=== PATIENT | female | born 1955 | race Caucasian/White ===

== ENCOUNTER 2018-02-20 18:45 | Emergency (ER) | payer MEDICARE, MEDICAID ==
[~2018-02-20] VITALS: Ht 160 cm; Wt 122.5 kg
[~2018-02-20 18:45] MED LIST: AC500T PO; ALPR0.25 PO; ALPR0.5T PO; AMLO5TAB2 PO; ASPI-731 PO; ASPI325T57 PO; CHOL400C8 PO; CYAN100T PO; DIAZ5TAB3 PO; FERR-47 PO; HYDR118S10 PO; ISOS60TA3 PO; LAMO200T2 PO; MULT-974 PO; MULT1CAP27 PO; OXYC-12 PO; POTA99TA15 PO; SULF1TAB35 PO; TRAM50TA2 PO
--- NOTE | 2018-02-20 19:31 | ED Lower Extremity ---
General Chief Complaint: Lower Extremity Stated Complaint: R ANKLE PAIN,TRIPPED OVER WALKER Nursing Triage Note: 02/19 TRIPPED OVER GRANDSONS WALKER, FELL AND HIT HEAD WITH NO LOC, RIGHT HIP BRUISING AND SLIGHT PAIN. 02/20 FELL OVER WALKER AGAIN. RIGHT KNEE "INDENTION" WIHT RIGHT ANKLE/ FOOT PAIN AND SWELLING. Nursing Sepsis Screen: No Definite Risk Source: patient Exam Limitations: no limitations History of Present Illness Date Seen by Provider: Feb 20, 2018 Time Seen by Provider: 19:28 Initial Comments To ER per private vehicle with reports of a fall. She states that her 8-month- old grandson is in a walker and is becoming mobile. She tripped over his walker last night and struck the front of her head. No loss of consciousness. She then tripped again today, felt a popping sensation in the right ankle and has been unable to bear weight since then. She has an "indentation" on her right knee after the fall and she has some right hip pain after the fall today. She again struck the back of her head today during the fall but again no loss of consciousness headache nausea or vomiting. She is on aspirin daily, no other anticoagulant or antiplatelet drugs. Onset: just prior to arrival Severity: moderate Pain/Injury Location: right hip, right knee, right ankle Method of Injury: fell Modifying Factors: Worse With Movement Allergies and Home Medications Allergies Coded Allergies: No Known Drug Allergies (Unverified , 02/20/18) Home Medications Acetaminophen 500 Mg Tablet, 1,000 MG PO Q6H PRN for PAIN, (Reported) TAKES 2 (500MG) TABLETS NEEDED FOR PAIN Alprazolam 0.25 Mg Tablet, 0.25 MG PO BID PRN for ANXIETY, (Reported) NEEDED FOR ANXIETY Amlodipine Besylate 5 Mg Tablet, 5 MG PO DAILY, (Reported) Aspirin 325 Mg Tablet.dr, 325 MG PO BID Prescribed by: TYLOR CLIFFORD on 08/26/13 0148 Ferrous Sulfate 325 ( Tablet, 325 MG PO DAILY, (Reported) Isosorbide Mononitrate 60 Mg Tab.er.24h, 60 MG PO DAILY, (Reported) Lamotrigine 200 Mg Tablet, 200 MG PO TID, (Reported) Multivitamin 1 Each Tablet, 1 TAB PO DAILY, (Reported) Oxycodone Hcl/Acetaminophen 1 Each Tablet, 1-2 TAB PO Q4H PRN for PAIN Prescribed by: TYLOR CLIFFORD on 08/26/13 0146 Potassium Gluconate 99 Mg Tablet, 99 MG PO DAILY, (Reported) Sulfamethoxazole/Trimethoprim 1 Each Tablet, 1 EACH PO BID Prescribed by: JESSICA VILLAGOMEZ on 09/02/15 1414 Patient Home Medication List Home Medication List Reviewed: Yes Review of Systems Constitutional: see HPI EENTM: see HPI Respiratory: no symptoms reported Cardiovascular: no symptoms reported Genitourinary: no symptoms reported Musculoskeletal: see HPI Skin: no symptoms reported Psychiatric/Neurological: No Symptoms Reported Past Azmczti-Kycxcz-Pkocoj Hx Patient Social History Alcohol Use: Denies Use Recreational Drug Use: No Smoking Status: Never a Smoker Recent Foreign Travel: No Contact w/Someone Who Travel: No Recent Infectious Disease Expo: No Recent Hopitalizations: Yes (LAST YEAR FOR DISC FUSION) Physical Abuse: No Sexual Abuse: No Immunizations Up To Date Tetanus Booster (TDap): More than 5yrs Past Medical History Surgeries: Yes (GASTRIC BYPASS, BLADDER TIE UP, internal groshong insertion) Orthopedic Respiratory: No Cardiac: Yes Hypertension Neurological: Yes (LAST SEIZURE A YEAR AND A HALF AGO) Reproductive Disorders: No Genitourinary: No Gastrointestinal: No Musculoskeletal: Yes Arthritis, Back Injury Endocrine: No HEENT: No Cancer: No Psychosocial: No Integumentary: No Blood Disorders: No Family Medical History Family history: Arthritis 03 MOTHER Family history: Cardiovascular disease 03 FATHER 09 BROTHER Family history: Diabetes mellitus 03 FATHER Family history: Hypertension 03 MOTHER Family history: Thyroid disorder 03 MOTHER 09 SISTER Myocardial infarction 03 FATHER Stroke 03 FATHER No Family History of: Abdominal aortic aneurysm Alcoholism Cancer Family history: Alzheimer's disease Family history: Asthma Family history: Breast disease Family history: Gastrointestinal disease Hereditary disease History of - anemia History of - respiratory disease Seizure disorder No Pertinent Family Hx Physical Exam Vital Signs Vital Signs - First Documented 02/20/18 19:04 Temp 96.9 Pulse 76 Resp 16 B/P (MAP) 170/93 (118) Pulse Ox 100 Capillary Refill : Less Than 3 Seconds Height, Weight, BMI Height: 5'3.00" Weight: 270lbs. 0.0oz. 122.088861vk; 47.23 BMI Method:Stated General Appearance: WD/WN, no apparent distress HEENT: PERRL/EOMI, normal ENT inspection, TMs normal Neck: non-tender, full range of motion; No tender lateral, No tender midline Cardiovascular: regular rate, rhythm, no murmur Respiratory: normal breath sounds, no respiratory distress, no accessory muscle use Gastrointestinal: normal bowel sounds, non tender Hips: left hip non-tender; bilateral hip normal inspection, bilateral hip normal range of motion; right hip pain Legs: right leg pain, right leg soft tissue tenderness Knees: right knee pain Ankles: right ankle pain, right ankle soft tissue tenderness, right ankle swelling, right ankle other (circumferential swelling ecchymosis of the right ankle primarily distal tibia/fibula) Feet: right foot other (she maintains brisk capillary refill of all of the toes , palpable dorsalis pedis pulse bilaterally) Neurologic/Psychiatric: alert, normal mood/affect, oriented x 3 Skin: normal color, warm/dry Progress/Results/Core Measures Results/Orders My Orders Orders - MARIE KAISER APRN Ct Head Wo (02/20/18 19:22) Pelvis With Right Hip 2-3views (02/20/18 19:22) Tibia/Fibula, Right, 2 Views (02/20/18 19:22) Ankle, Right, 3 Views (02/20/18 19:22) Oxycodone/Apap 5/325mg Tablet (Percocet (02/20/18 20:30) Rx-Oxycodone/Apap 5-325 Mg (Rx-Percocet (02/20/18 20:30) Medications Given in ED Current Medications Medications Dose Ordered Sig/Carol Route Start Time Stop Time Status Last Admin Dose Admin Oxycodone/ Acetaminophen 1 tab ONCE ONCE PO 02/20/18 20:30 02/20/18 20:31 DC 02/20/18 20:31 1 TAB Vital Signs/I&O 02/20/18 19:04 Temp 96.9 Pulse 76 Resp 16 B/P (MAP) 170/93 (118) Pulse Ox 100 Blood Pressure Mean: 118 Diagnostic Imaging Diagonstic Imaging: CT Comments NAME: CONG NEAL MED REC#: [id number] PT STATUS: REG ER : 1955 PHYSICIAN: MARIE KAISER APRN ADMIT DATE: 02/20/18/ER Draft Date of Exam:02/20/18 ANKLE, RIGHT, 3 VIEWS EXAM: Ankle, right, 3 views. INDICATION: Fall. Right ankle pain. COMPARISON: Right tibia and fibula radiographs also performed today. FINDINGS: Mildly displaced obliquely oriented fracture through the distal right fibular metaphysis at the level of the tibial plafond. There is also a comminuted mildly displaced fracture of the right medial malleolus. The talar dome appears intact. Soft tissue swelling about the right ankle. IMPRESSION: Bimalleolar right ankle fracture. Dictated on workstation # [id number] Dict: 02/20/182030 Trans: 02/20/182032 [facility] [id number] Interpreted by: ALYX VILLEDA MD Electronically signed by: NAME: CONG NEAL [place] REC#: [id number] PT STATUS: REG ER : 1955 PHYSICIAN: MARIE KAISER APRN ADMIT DATE: 02/20/18/ER Draft Date of Exam:02/20/18 TIBIA/FIBULA, RIGHT, 2 VIEWS EXAM: Tibia/fibula, right, 2 views. INDICATION: Fall. Right knee pain. Right ankle pain. COMPARISON: Right ankle radiographs also performed today. FINDINGS: Postoperative findings of a right total knee arthroplasty. Components appear intact and well seated. No periprosthetic fractures. There is an obliquely oriented mildly displaced fracture of the distal right fibular metaphysis at the level of the tibial plafond. There is also a mildly displaced fracture through the base of the right medial malleolus. Soft tissue swelling about the right ankle. IMPRESSION: 1. Bimalleolar right ankle fracture. 2. Right TKA. Dictated on workstation # [id number] Dict: 02/20/182028 Trans: 02/20/182031 [facility] [id number] Interpreted by: ALYX VILLEDA MD Electronically signed by: NAME: CONG NEAL [place] REC#: [id number] PT STATUS: REG ER : 1955 PHYSICIAN: MARIE KAISER APRN ADMIT DATE: 02/20/18/ER Draft Date of Exam:02/20/18 PELVIS WITH RIGHT HIP 2-3VIEWS EXAM: Pelvis with right hip 2-3 views. INDICATION: Fall. COMPARISON: None. FINDINGS: Mild degenerative changes in both hips. No fracture or malalignment. Partially visualized postoperative changes in the lumbar spine. Soft tissue shadows are unremarkable. IMPRESSION: No acute radiographic findings. Dictated on workstation # [id number] Dict: 02/20/182027 Trans: 02/20/182030 [facility] [id number] Interpreted by: ALYX VILLEDA MD Electronically signed by: NAME: CONG NEAL [facility] REC#: [id number] PT STATUS: REG ER : 1955 PHYSICIAN: MARIE KAISER ACCOUNT EXECUTIVE ADMIT DATE: 02/20/18/ER Draft Date of Exam:02/20/18 CT HEAD WO PROCEDURE: CT head without contrast. TECHNIQUE: Multiple contiguous axial images were obtained through the brain without the use of intravenous contrast. INDICATION: Fall. Head injury. COMPARISON: None. FINDINGS: Mild generalized cerebral and cerebellar parenchymal volume loss is age appropriate. No CT evidence for territorial infarction. Mild leukoaraiosis. No intracranial hemorrhage, mass effect, hydrocephalus or extra-axial fluid collections. No acute osseous findings. The visualized paranasal sinuses and mastoids are clear. IMPRESSION: No acute intracranial CT findings. Dictated on workstation # [id number] Dict: 02/20/182034 Trans: 02/20/182037 [facility] [id number] Interpreted by: ALYX VILLEDA MD Electronically signed by: Departure Communication (Admissions) Communicated with Dr. Valencia who is on-call for orthopedics regarding the bimalleolar ankle fracture. We will splint, he'll see in the clinic tomorrow morning at 11 AM. She is neurovascularly intact at this time. Posterior short leg and stirrup style splint with orthoglass applied, given crutches. Impression Primary Impression: Bimalleolar fracture of right ankle Disposition: HOME, SELF-CARE Condition: Stable Departure-Patient Inst. Decision time for Depature: 20:21 Referrals: EZE VALENCIA MD, LISA A MD (PCP/Family) Primary Care Physician Patient Instructions: Ankle Fracture (DC) Add. Discharge Instructions: 1. Elevate the ankle as much as possible tonight. But this on 3 or 4 pillows while you're at home laying flat and this will help with the swelling and subsequent pain. See Dr. Valencia tomorrow at 11 AM in his office in [place]. Leave the splint on at all times until he directs you otherwise. Do not put any weight on the right leg. All discharge instructions reviewed with patient and/ or family. Voiced understanding. Copy Copies To 1: EZE VALENCIA MD, PETER J APRN Feb 20, 2018 19:31
[2018-02-20] MEDS ORDERED: RX-OXYCODONE/APAP 5-325 MG #4 TAB PK PO PRN (20:30)
[2018-02-20] MEDS ORDERED: oxyCODONE/APAP 5/325MG (PERCOCET 5) TABLET PO ONE (20:30)
--- NOTE | 2018-02-20 20:32 | Diagnostic Imaging Report ---
EXAM: Pelvis with right hip 2-3 views. INDICATION: Fall. COMPARISON: None. FINDINGS: Mild degenerative changes in both hips. No fracture or malalignment. Partially visualized postoperative changes in the lumbar spine. Soft tissue shadows are unremarkable. IMPRESSION: No acute radiographic findings. Dictated by: Dictated on workstation # [id number]
--- NOTE | 2018-02-20 20:33 | Diagnostic Imaging Report ---
EXAM: Tibia/fibula, right, 2 views. INDICATION: Fall. Right knee pain. Right ankle pain. COMPARISON: Right ankle radiographs also performed today. FINDINGS: Postoperative findings of a right total knee arthroplasty. Components appear intact and well seated. No periprosthetic fractures. There is an obliquely oriented mildly displaced fracture of the distal right fibular metaphysis at the level of the tibial plafond. There is also a mildly displaced fracture through the base of the right medial malleolus. Soft tissue swelling about the right ankle. IMPRESSION: 1. Bimalleolar right ankle fracture. 2. Right TKA. Dictated by: Dictated on workstation # [id number]
--- NOTE | 2018-02-20 20:34 | Diagnostic Imaging Report ---
EXAM: Ankle, right, 3 views. INDICATION: Fall. Right ankle pain. COMPARISON: Right tibia and fibula radiographs also performed today. FINDINGS: Mildly displaced obliquely oriented fracture through the distal right fibular metaphysis at the level of the tibial plafond. There is also a comminuted mildly displaced fracture of the right medial malleolus. The talar dome appears intact. Soft tissue swelling about the right ankle. IMPRESSION: Bimalleolar right ankle fracture. Dictated by: Dictated on workstation # [id number]
--- NOTE | 2018-02-20 20:38 | Diagnostic Imaging Report ---
PROCEDURE: CT head without contrast. TECHNIQUE: Multiple contiguous axial images were obtained through the brain without the use of intravenous contrast. INDICATION: Fall. Head injury. COMPARISON: None. FINDINGS: Mild generalized cerebral and cerebellar parenchymal volume loss is age appropriate. No CT evidence for territorial infarction. Mild leukoaraiosis. No intracranial hemorrhage, mass effect, hydrocephalus or extra-axial fluid collections. No acute osseous findings. The visualized paranasal sinuses and mastoids are clear. IMPRESSION: No acute intracranial CT findings. Dictated by: Dictated on workstation # [id number]
[2018-02-20 21:08] VITALS: BP 128/72
--- OUTSIDE RECORDS SUMMARY | 2018-02-20 22:27 | XMS REPORT ---
Author Author VLAD HUNT [facility] Address [address] [place] [address] Care Team Providers Care Picu Nurse Name Role Phone VLAD HUNT Unavailable PROBLEMS Type Condition ICD9-CM Code MSM90-AF Code Onset Dates Condition Status SNOMED Code Problem Generalized anxiety disorder F41.1 Active 47058069 Problem Major depressive disorder, recurrent episode, moderate F33.1 Active [id number] ALLERGIES No Information ENCOUNTERS Encounter Location Date Diagnosis [facility] [address] [id number], [place] [id number] Feb, [facility] [id number], [place] [address] Nov, Generalized anxiety disorder F41.1 and Major depressive disorder, recurrent episode, moderate F33.1 [facility] [address] [id number] [id number] Sep, Dental examination V72.2 IMMUNIZATIONS No Known Immunizations SOCIAL HISTORY Never Assessed REASON FOR VISIT intake PLAN OF CARE Activity Details Follow Up Next available Reason: F/U VITAL SIGNS MEDICATIONS Unknown Medications RESULTS No Results PROCEDURES Procedure Date Ordered Result Body Site [facility] VISIT MENTAL HEALTH NEW PT November 26, 2017 Psych diagnostic evaluation, new patient November 26, 2017 INSTRUCTIONS MEDICATIONS ADMINISTERED No Known Medications
--- OUTSIDE RECORDS SUMMARY | 2018-02-20 22:28 | XMS REPORT | Continuity of Care Document ---
Author Author [facility] Organization [facility] Address Unknown Phone Unavailable Allergies Active Description Code Type Severity Reaction Onset Reported/Identified Relationship to Patient Clinical Status Yes NO KNOWN DRUG ALLERGIES NO KNOWN DRUG ALLERG UNKNOWN Yes NO KNOWN DRUG ALLERGIES UNKNOWN NO KNOWN DRUG ALLERG Yes No Known Drug Allergies [id number] Drug Allergy Unknown N/A 08/07/2013 Medications Medication Packaging Start Date Stop Date Route Dosage Sig Heparin, FLUSH IV syringe 500 units UNITS 08/12/2016 08/12/2016 ONCE&1426 LACTATED RINGERS 1000CC IV BAG INJ ml 04/10/2017 04/17/2017 CONTINUOUSEVERY 0 Hour CEFAZOLIN VIAL INJ 1 GM (ANCEF) GM 04/16/2017 04/16/2017 ONCE&0800 Problems Date Dx Coded Attending Type Code Diagnosis Diagnosed By 08/10/2013 LILA COFFMAN DO Ot 718.86 JT DERANGEMENT NEC-L/LEG 08/10/2013 LILA COFFMAN DO Ot 719.46 JOINT PAIN-L/LEG 08/10/2013 LILA COFFMAN DO Ot V43.65 KNEE JOINT REPLACEMENT STATUS 08/10/2013 LILA COFFMAN DO Ot V57.1 PHYSICAL THERAPY NEC 08/29/2013 LILA COFFMAN DO Ot 345.90 EPILEPSY UNSPEC W/O MENTION INTRACTABLE 08/29/2013 LILA COFFMAN DO Ot 401.9 HYPERTENSION NOS 08/29/2013 LILA COFFMAN DO Ot 996.42 DISLOCATION OF PROSTHETIC JOINT 08/29/2013 LILA COFFMAN DO Ot V04.81 ND FOR PROPHYLACTIC VACCIN AND INOCULATI 12/08/2013 LILA COFFMAN DO Ot V43.65 KNEE JOINT REPLACEMENT STATUS 12/08/2013 LILA COFFMAN DO Ot V54.81 AFTERCARE FOLLOWING JOINT REPLACEMENT 12/08/2013 LILA COFFMAN DO Ot V57.1 PHYSICAL THERAPY NEC 06/07/2014 ALLA CHAVEZ MD Ot 724.2 09/02/2015 ALLA CHAVEZ MD, Ot Z53.9 09/02/2015 JESSICA CHÁVEZ Ot T85.628A DISPLACEMENT OF INTERNAL PROSTH DEV/GRFT 09/02/2015 JESSICA CHÁVEZ Ot Z98.84 BARIATRIC SURGERY STATUS 09/02/2015 JESSICA CHÁVEZ Ot Z98.89 OTHER SPECIFIED POSTPROCEDURAL STATES 09/05/2015 JESSICA CHÁVEZ Ot T85.628A 09/05/2015 JESSICA CHÁVEZ Ot Z98.84 09/05/2015 JESSICA CHÁVEZ Ot Z98.89 09/29/2015 ALLA CHAVEZ MD, Ot Z53.9 09/29/2015 ALLA CHAVEZ MD, Ot Z53.9 10/05/2015 LILA COFFMAN DO Ot 719.46 JOINT PAIN-L/LEG 10/05/2015 LILA COFFMAN DO Ot 791.9 ABN URINE FINDINGS NEC 10/05/2015 LILA COFFMAN DO Ot V43.65 KNEE JOINT REPLACEMENT STATUS 10/05/2015 LILA COFFMAN DO Ot V72.63 PRE-PROCEDURAL LABORATORY EXAMINATION 10/05/2015 LILA COFFMAN DO Ot V72.83 EXAM PRE-OPERATIVE NEC 10/05/2015 LILA COFFMAN DO Ot V74.8 SCREEN-BACTERIAL DIS NEC 10/05/2015 LILA COFFMAN DO Ot 719.46 JOINT PAIN-L/LEG 10/05/2015 LILA COFFMAN DO Ot V43.65 KNEE JOINT REPLACEMENT STATUS 10/05/2015 LILA COFFMAN DO Ot 791.9 ABN URINE FINDINGS NEC 10/05/2015 LILA COFFMAN DO Ot 996.77 OTH COMPLICATIONS DUE TO INTERNAL JOINT 10/05/2015 LILA COFFMAN DO Ot V43.65 KNEE JOINT REPLACEMENT STATUS 10/05/2015 LILA COFFMAN DO Ot V72.63 PRE-PROCEDURAL LABORATORY EXAMINATION 10/05/2015 ALLA CHAVEZ MD Ot 724.2 LUMBAGO 10/05/2015 ALLA CHAVEZ MD Ot Z53.9 PROCEDURE AND TREATMENT NOT CARRIED OUT, 10/05/2015 ALLA CHAVEZ MD Ot Z53.9 PROCEDURE AND TREATMENT NOT CARRIED OUT, 10/05/2015 KATHY BEAR, ALLA Jones Ot Z53.9 PROCEDURE AND TREATMENT NOT CARRIED OUT, 10/06/2015 MURTAZA SOW MD Ot M79.661 PAIN IN RIGHT LOWER LEG 10/06/2015 MURTAZA SOW MD Ot M79.89 OTHER SPECIFIED SOFT TISSUE DISORDERS 10/10/2015 MURTAZA SOW MD Ot M79.661 PAIN IN RIGHT LOWER LEG 10/10/2015 MURTAZA SOW MD Ot M79.89 OTHER SPECIFIED SOFT TISSUE DISORDERS 10/11/2015 MURTAZA SOW MD Ot M79.661 PAIN IN RIGHT LOWER LEG 10/11/2015 MURTAZA SOW MD, Ot M79.89 OTHER SPECIFIED SOFT TISSUE DISORDERS 10/25/2015 MURTAZA SOW MD, Ot M79.661 PAIN IN RIGHT LOWER LEG 10/25/2015 MURTAZA SOW MD, Ot M79.89 OTHER SPECIFIED SOFT TISSUE DISORDERS 11/04/2015 MURTAZA SOW MD, Ot M79.661 PAIN IN RIGHT LOWER LEG 11/04/2015 MURTAZA SOW MD Ot M79.89 OTHER SPECIFIED SOFT TISSUE DISORDERS 11/30/2015 Ot 786.59 11/30/2015 Ot V17.4 11/30/2015 Ot V72.83 11/30/2015 LILA COFFMAN DO Ot 719.46 JOINT PAIN-L/LEG 11/30/2015 LILA COFFMAN DO Ot 791.9 ABN URINE FINDINGS NEC 11/30/2015 LILA COFFMAN DO Ot V43.65 KNEE JOINT REPLACEMENT STATUS 11/30/2015 LILA COFFMAN DO Ot V72.63 PRE-PROCEDURAL LABORATORY EXAMINATION 11/30/2015 LILA COFFMAN DO Ot V72.83 EXAM PRE-OPERATIVE NEC 11/30/2015 LILA COFFMAN DO Ot V74.8 SCREEN-BACTERIAL DIS NEC 11/30/2015 LILA COFFMAN DO Ot 719.46 JOINT PAIN-L/LEG 11/30/2015 LILA COFFMAN DO Ot V43.65 KNEE JOINT REPLACEMENT STATUS 11/30/2015 LILA COFFMAN DO Ot 791.9 ABN URINE FINDINGS NEC 11/30/2015 LILA COFFMAN DO Ot 996.77 OTH COMPLICATIONS DUE TO INTERNAL JOINT 11/30/2015 LILA COFFMAN DO Ot V43.65 KNEE JOINT REPLACEMENT STATUS 11/30/2015 LILA COFFMAN DO Ot V72.63 PRE-PROCEDURAL LABORATORY EXAMINATION 11/30/2015 ALLA CHAVEZ MD Ot 724.2 LUMBAGO 11/30/2015 ALLA CHAVEZ MD Ot Z53.9 PROCEDURE AND TREATMENT NOT CARRIED OUT, 11/30/2015 ALLA CHAVEZ MD Ot Z53.9 PROCEDURE AND TREATMENT NOT CARRIED OUT, 11/30/2015 ALLA CHAVEZ MD Ot Z53.9 PROCEDURE AND TREATMENT NOT CARRIED OUT, 11/30/2015 MURTAZA SOW MD Ot M79.661 PAIN IN RIGHT LOWER LEG 11/30/2015 MURTAZA SOW MD Ot M79.89 OTHER SPECIFIED SOFT TISSUE DISORDERS 11/30/2015 MURTAZA SOW MD Ot M79.661 PAIN IN RIGHT LOWER LEG 11/30/2015 MURTAZA SOW MD Ot M79.89 OTHER SPECIFIED SOFT TISSUE DISORDERS 11/30/2015 LILA COFFMAN DO Ot 719.46 JOINT PAIN-L/LEG 11/30/2015 LILA COFFMAN DO Ot 791.9 ABN URINE FINDINGS NEC 11/30/2015 LILA COFFMAN DO Ot V43.65 KNEE JOINT REPLACEMENT STATUS 11/30/2015 LILA COFFMAN DO Ot V72.63 PRE-PROCEDURAL LABORATORY EXAMINATION 11/30/2015 LILA COFFMAN DO Ot V72.83 EXAM PRE-OPERATIVE NEC 11/30/2015 LILA COFFMAN DO Ot V74.8 SCREEN-BACTERIAL DIS NEC 11/30/2015 LILA COFFMAN DO Ot 719.46 JOINT PAIN-L/LEG 11/30/2015 LILA COFFMAN DO Ot V43.65 KNEE JOINT REPLACEMENT STATUS 11/30/2015 LILA COFFMAN DO Ot 791.9 ABN URINE FINDINGS NEC 11/30/2015 LILA COFFMAN DO Ot 996.77 OTH COMPLICATIONS DUE TO INTERNAL JOINT 11/30/2015 LILA COFFMAN DO Ot V43.65 KNEE JOINT REPLACEMENT STATUS 11/30/2015 LILA COFFMAN DO Ot V72.63 PRE-PROCEDURAL LABORATORY EXAMINATION 11/30/2015 ALLA CHAVEZ MD Ot 724.2 LUMBAGO 11/30/2015 ALLA CHAVEZ MD Ot Z53.9 PROCEDURE AND TREATMENT NOT CARRIED OUT, 11/30/2015 ALLA CHAVEZ MD, Ot Z53.9 PROCEDURE AND TREATMENT NOT CARRIED OUT, 11/30/2015 ALLA CHAVEZ MD, Ot Z53.9 PROCEDURE AND TREATMENT NOT CARRIED OUT, 11/30/2015 MURTAZA SOW MD, Ot M79.661 PAIN IN RIGHT LOWER LEG 11/30/2015 MURTAZA SOW MD Ot M79.89 OTHER SPECIFIED SOFT TISSUE DISORDERS 01/18/2016 ALLA CHAVEZ MD, Ot Z53.9 PROCEDURE AND TREATMENT NOT CARRIED OUT, 02/01/2016 ALLA CHAVEZ MD, Ot Z53.9 PROCEDURE AND TREATMENT NOT CARRIED OUT, 07/07/2016 A V58.81 ENCOUNTER FOR FITTING AND ADJUSTMENT OF VASCULAR CATHETER 07/07/2016 A Z45.2 ENCOUNTER FOR ADJUSTMENT AND MANAGEMENT OF VAD 08/12/2016 Alla Chavez V58.81 ENCOUNTER FOR FITTING AND ADJUSTMENT OF VASCULAR CATHETER 08/12/2016 Alla Chavez Z45.2 ENCOUNTER FOR ADJUSTMENT AND MANAGEMENT OF VAD 11/20/2016 NGOC PIERSON W 722.90 OTHER AND UNSPECIFIED DISC DISORDER OF UNSPECIFIED REGION 11/20/2016 NGOC PIERSON W 724.02 SPINAL STENOSIS OF LUMBAR REGION WITHOUT NEUROGENIC CLAUDICATION 11/20/2016 NGOC PIERSON W 724.6 DISORDERS OF SACRUM 11/20/2016 NGOC PIERSON W M48.06 SPINAL STENOSIS, LUMBAR REGION 11/20/2016 NGOC PIERSON W 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, THORACOLUM AND LUMBOSACR INTVRT DISC DISORDER 11/20/2016 NGOC PIERSON W M53.3 SACROCOCCYGEAL DISORDERS, NOT ELSEWHERE CLASSIFIED 11/20/2016 NGOC PIERSON V58.49 ENCOUNTER FOR OTHER SPECIFIED AFTERCARE FOLLOWING SURGERY 11/20/2016 NGOC PIERSON Z48.89 ENCOUNTER FOR OTHER SPECIFIED SURGICAL AFTERCARE 04/16/2017 A V58.81 ENCOUNTER FOR FITTING AND ADJUSTMENT OF VASCULAR CATHETER 04/16/2017 A Z45.2 ENCOUNTER FOR ADJUSTMENT AND MANAGEMENT OF VAD 07/26/2017 Alla Chavez W 611.72 LUMP OR MASS IN BREAST 07/26/2017 Alla Chavez W N63 UNSPECIFIED LUMP IN BREAST 07/26/2017 Alla Chavez W 611.72 LUMP OR MASS IN BREAST 07/26/2017 Alla Chavez W N63 UNSPECIFIED LUMP IN BREAST Procedures Code Description Performed By Performed On 81.55 08/25/2013 84.57 08/25/2013 Results Test Result Range Vancomycin trough - 01/14/16 19:30 Vancomycin trough 19.5 ug/mL 10.0-20.0 Sed Rate - 09/04/16 08:20 Sed Rate 7 mm/hr 9-15 Comprehensive Metabolic Panel - 12/05/16 17:00 Albumin 3.5 g/dL 3.6-5.1 ALP 121 U/L 35-130 ALT 14 U/L 6-45 Anion Gap 15 6-14 AST 21 U/L 2-40 BUN 11 mg/dL 5-25 Calcium 9.2 mg/dL 8.3-10.4 Chloride 104 mmol/L 95-114 CO2 27 mEq/L 22-33 Creat 0.94 mg/dL 0.50-1.50 eGFR 61 mL/min/1.73m2 >59 Globulin 2.4 g/dL 2.3-3.5 Glucose 92 mg/dL 70-110 Osmo 292 280-295 Potassium 4.2 mmol/L 3.5-5.3 Sodium 142 mmol/L 134-148 TBil 0.2 mg/dL 0.2-1.2 TP 5.9 g/dL 6.0-8.3 Urine Culture - 12/05/16 17:57 PRELIM CULTURE RESULTS 10,000-20,000 Gram Negative - KILEY / ID to Follow MEDIA PLATED Setup at 18:09 on 12/05/2016 CULTURE SOURCE void Sensi - 12/05/16 17:57 FINAL CULTURE RESULTS Proteus mirabilis (Isolate 1) Ampicillin/Sulbactam <=8/4 Ampicillin <=8 Amoxicillin/K Clavulanate <=8/4 Ceftriaxone <=8 Ciprofloxacin <=1 Nitrofurantoin >64 Gentamicin <=4 Levofloxacin <=2 Trimethoprim/ Sulfamethoxazole <=2/38 Tetracycline >8 Amikacin <=16 Aztreonam <=8 Ceftazidime <=1 Ceftazidime/K Clavulanate <=0.25 Cephalothin <=8 Cefotaxime <=2 Cefotaxime/K Clavulanate <=0.5 Cefoxitin <=8 Cefazolin <=8 Cefepime <=8 Cefuroxime <=4 Ertapenem <=1 Imipenem <=4 Meropenem <=4 Piperacillin/Tazobactam <=16 Piperacillin <=16 Tigecycline N/R Tobramycin <=4 Urine Culture - 01/17/17 17:11 PRELIM CULTURE RESULTS 20,000 gram neg [id number] / ID to follow MEDIA PLATED Setup at 17:16 on 01/17/2017 CULTURE SOURCE clinic collection Sensi - 01/17/17 17:11 FINAL CULTURE RESULTS Proteus mirabilis (Isolate 1) Ampicillin/Sulbactam <=8/4 Ampicillin <=8 Amoxicillin/K Clavulanate <=8/4 Ceftriaxone <=8 Ciprofloxacin <=1 Nitrofurantoin >64 Gentamicin <=4 Levofloxacin <=2 Trimethoprim/ Sulfamethoxazole <=2/38 Tetracycline >8 Amikacin <=16 Aztreonam <=8 Ceftazidime <=1 Ceftazidime/K Clavulanate <=0.25 Cephalothin <=8 Cefotaxime <=2 Cefotaxime/K Clavulanate <=0.5 Cefoxitin <=8 Cefazolin <=8 Cefepime <=8 Cefuroxime <=4 Ertapenem <=1 Imipenem <=4 Meropenem <=4 Piperacillin/Tazobactam <=16 Piperacillin <=16 Tigecycline N/R Tobramycin <=4 Comprehensive Metabolic Panel - 04/10/17 11:18 Albumin 4.2 g/dL 3.6-5.1 ALP 132 U/L 35-130 ALT 25 U/L 6-45 Anion Gap 16 6-14 AST 32 U/L 2-40 BUN 16 mg/dL 5-25 Calcium 9.5 mg/dL 8.3-10.4 Chloride 101 mmol/L 95-114 CO2 26 mEq/L 22-33 Creat 0.89 mg/dL 0.50-1.50 eGFR 64 mL/min/1.73m2 >59 Globulin 2.8 g/dL 2.3-3.5 Glucose 86 mg/dL 70-110 Osmo 288 280-295 Potassium 4.2 mmol/L 3.5-5.3 Sodium 139 mmol/L 134-148 TBil 0.3 mg/dL 0.2-1.2 TP 7.0 g/dL 6.0-8.3 MRSA Screen - 04/16/17 07:32 FINAL CULTURE RESULTS MRSA Negative Nasal Culture MEDIA PLATED Setup at 07:51 on 04/16/2017 Pap IG (Image Guided) - 07/18/17 17:52 DIAGNOSIS: Comment Specimen adequacy: Comment Performed by: Comment QC reviewed by: Comment . . Note: Comment Test Methodology: Comment Thyroid Stimulating Hormone - 07/26/17 10:41 TSH 1.25 mIU/mL 0.32-5.00 Encounters ACCT No. Visit Date/Time Discharge Status Pt. Type Provider Facility Loc./Unit Complaint [id number] 01/14/2016 19:30:00 01/14/2016 23:59:59 CLS Outpatient ALLA CHAVEZ MD [facility] [id number] 01/11/2016 19:57:00 01/11/2016 19:57:00 CAN Preadmit GILMA VINCENT DO [facility] [id number] 10/05/2015 10:24:00 10/05/2015 23:59:59 CLS Outpatient MURTAZA SOW MD [facility] [id number] 09/24/2015 15:43:00 09/24/2015 23:59:59 CLS Outpatient ALLA CHAVEZ MD [facility] [id number] 09/03/2015 18:23:00 09/03/2015 23:59:59 CLS Outpatient ALLA CHAVEZ MD [facility] [id number] 09/02/2015 11:14:00 09/02/2015 17:35:00 DIS Emergency JESSICA CHÁVEZ [facility] [id number] 08/28/2015 07:34:00 08/28/2015 23:59:59 CLS Outpatient ALLA CHAVEZ MD [facility] [id number] 04/19/2014 16:48:00 04/19/2014 23:59:59 CLS Outpatient ALLA CHAVEZ MD [facility] RAD [id number] 11/25/2013 10:15:00 12/08/2013 11:51:00 DIS Outpatient SATTERLILA BERMUDEZ DO [facility] REHAB [id number] 08/25/2013 06:05:00 08/29/2013 12:00:00 DIS Inpatient SATTERLILA BERMUDEZ DO [facility] SURGICAL [id number] 08/12/2013 12:56:00 08/12/2013 23:59:59 CLS Outpatient SATTERLILA BERMUDEZ DO [facility] LAB [id number] 07/23/2013 08:56:00 08/10/2013 14:29:00 DIS Outpatient HIRENTERLILA BERMUDEZ DO [facility] REHAB [id number] 08/07/2013 08:23:00 08/07/2013 23:59:59 CLS Outpatient SATTERLILA BERMUDEZ DO [facility] PREOP [id number] 08/04/2013 10:09:00 08/04/2013 23:59:59 CLS Outpatient SATTERLILA BERMUDEZ DO [facility] LAB [id number] 11/30/2015 07:36:00 Document Registration [id number] 01/21/2006 14:35:00 Document Registration [id number] 11/26/2017 14:30:00 11/26/2017 23:59:59 CLS Outpatient REBECCA FIGUEROA [facility] [id number] 07/26/2017 09:31:00 07/26/2017 23:59:00 DIS Outpatient Alla Chavez [id number] 07/18/2017 17:51:00 07/18/2017 23:59:00 DIS Outpatient Alla Chavez [id number] 04/10/2017 10:32:00 04/10/2017 23:59:00 DIS Outpatient Keon Villegas [id number] 01/17/2017 17:09:00 01/17/2017 23:59:00 DIS Outpatient Alla Chavez [id number] 12/21/2016 00:00:00 01/17/2017 12:00:00 DIS Outpatient NGOC PIERSON [id number] 12/21/2016 09:15:00 12/21/2016 09:15:00 CAN Outpatient NGOC PIERSON [id number] 12/05/2016 16:05:00 12/05/2016 23:59:00 DIS Outpatient Alla Chavez [id number] 09/04/2016 08:17:00 09/04/2016 23:59:00 DIS Outpatient Farideh Chaveza [id number] 08/12/2016 14:04:00 08/12/2016 14:17:00 DIS Outpatient Alla Chavez [id number] 04/10/2017 11:39:00 Document Registration [id number] 08/12/2016 14:27:07 Document Registration [id number] 07/07/2016 16:04:00 Document Registration [id number] 12/05/2016 16:05:00 Document Registration [id number] 04/10/2017 10:32:00 Document Registration [id number] 07/23/2017 16:25:00 Document Registration
== END 2018-02-20 21:08 | disposition home or self-care (01) ==
LOC: EDUNIT# 18:45 → ER 18:46
DX: S82.841A Displaced bimalleolar fracture of right lower leg, initial encounter for closed fracture (principal); S09.90XA Unspecified injury of head, initial encounter; M16.11 Unilateral primary osteoarthritis, right hip; M16.12 Unilateral primary osteoarthritis, left hip; I10 Essential (primary) hypertension; G40.909 Epilepsy, unspecified, not intractable, without status epilepticus; Z82.49 Family history of ischemic heart disease and other diseases of the circulatory system; Z96.651 Presence of right artificial knee joint; Z79.82 Long term (current) use of aspirin; Z79.02 Long term (current) use of antithrombotics/antiplatelets; Z98.1 Arthrodesis status; Z98.84 Bariatric surgery status; W01.198A Fall on same level from slipping, tripping and stumbling with subsequent striking against other object, initial encounter
CPT/HCPCS: 70450; 73590; 73610

== ENCOUNTER 2019-12-08 08:16 | Day surgery (SDC) | payer MEDICARE, MEDICAID ==
[2019-12-08] VITALS (11 sets, daily range): BP systolic 94–112; BP diastolic 53–71
[~2019-12-08] VITALS: Ht 190.5 cm; Wt 93.3 kg
[2019-12-08] MEDS ORDERED: LIDOCAINE 1% INJ 20 ML 20 ML VIAL ONE (08:22)
[2019-12-08] MEDS ORDERED: HEParin (CATH LAB) 1,000 ML IV ONE (08:22)
[2019-12-08] MEDS ORDERED: NS IV 1000 ML 1,000 ML ONE (08:22)
[2019-12-08] MEDS ORDERED: NS IV 1000 ML 1,000 ML IV SCH ×2 (08:30→11:42)
--- OUTSIDE RECORDS SUMMARY | 2019-12-08 08:50 | XMS REPORT ---
Author Author [employer] [facility] [employer] [facility] [employer] Address [address] [address] Care Team Providers Care Galley Boy Name Role Phone KATHY, SUSY A Unavailable VLAD HUNT Unavailable KATHY, SUSY A Unavailable KATHY, SUSY Unavailable Unavailable KATHY, SUSY Unavailable Unavailable KATHY, SUSY Unavailable Unavailable KATHY, SUSY Unavailable Unavailable KATHY, SUSY Unavailable Unavailable KATHY, SUSY Unavailable Unavailable VEENA GORMAN MD Unavailable Unavailable MAGI, MURTAZA Unavailable Unavailable MAGI, MURTAZA Unavailable Unavailable MAGI, MURTAZA Unavailable Unavailable Unavailable Unavailable Unavailable Unavailable Unavailable Unavailable Allergies Normalized Allergy Reported Date of Reaction(s) Care Provider Facility Allergy Type classification allergen Allergy Onset no information Unclassified NO KNOWN DRUG UNKNOWN, NO SUSY SALV ADOR Not Available (20 sources.) ALLERGIES KNOWN DRUG (52255) ALLERGIES Medications Medication Ingredient Drug Dose Dates Status Sig Sig Care Class(es) (Normalized) (Original) Provid er no Acetaminoph no 08-26-19 Complete no Acetaminophe (no information en/Hydrocod information 14 d information n/ Hydrocodon phone) (1 source.) one Bitart e Bitart (Hydrocodon (Hydrocodon- -Acetamin Acetamin 7.5-325/15) 7.5-325/15) 1 Each 1 Each Tablet, 1 Tablet, 1 Tab Oral Tab Oral Every 4HRS as needed for Pain Discontinued no Aspirin no 325 mg 08-27-19 Complete take 1 Aspirin T homas information (Enteric information 14 d tablet by (Agustín Dickerson (1 source.) Coated Asa) mouth twice Coated Asa) Satter 325 Mg daily 325 Mg ly (no Tablet.dr Tablet.dr phone) 325 Mg ORAL Twice A Day 60 Tab 08/26/13 no CEFAZOLIN no 1 g 04-16-20 no no no no information VIAL INJ 1 information 17 - informat informatio n information name (1 source.) GM (ANCEF) 04-16-20 ion 17 no Cholecalcif no 400 08-30-19 Complete take 1 Cholec alcife (no information carlito information [IU] 14 d capsule by r ol (Vitamin phone) (1 source.) (Vitamin mouth once D3) (Vitamin D3) daily D3) 400 Unit (Vitamin Capsule, 400 D3) 400 Unit Oral Unit Daily Capsule, Discontinued 400 Unit Oral no Heparin, no 500 08-12-19 no no no no information FLUSH IV information [IU] 17 - informat informati on information name (1 source.) syringe 500 08-12-19 ion units 17 no Lactated no 04-10-20 no no no no information Ringer's information 17 - informat information inf ormation name (1 source.) Solution 04-17-20 ion 17 no Multivitami no Complete take 1 Multivitamin (n o information n (Multi information d tablet by (Multi phone) (1 source.) Vitamin mouth once Vitamin Daily) 1 daily, then Daily) 1 Each Tablet take 1 Each Tablet tablet by 1 Tab ORAL mouth Daily no Oxycodone no 08-27-19 Complete take 1-2 Oxycodone Tho mas information Hcl/Acetami information 14 d tablets by Hcl /Acetamin F (1 source.) nophen mouth every ophen Satter (Percocet four hours (Percocet ly (no 5-325 Mg as needed 5-325 Mg phone) Tablet) 1 for pain, Tablet) 1 Each Tablet then take 1 Each Tablet tablet by 1-2 Tab ORAL mouth as Every 4HRS needed for as needed pain for Pain 90 Tab 08/26/13 Problems Active Problems Problem Normalized Date Last Normalized Normalized Provider Fa cility Classification Problem(s) Recorded Problem Problem Sta tus Duration Other Aftercare Chronic Active LILA Not Availabl e aftercare (1 following SATTERLY , III (94744) source.) joint replacement Other Arthrodesis Episodic Active no name no informa tion connective status tissue disease (3 sources.) NEGATED Bariatric Episodic Active JESSICA Not Availabl e no surgery status OSMAN VILLAGOMEZ (44431) information (4 sources.) NEGATED Care involving Episodic Active LILA Not Tamera ilable no other physical SATTERLY , III (48041) information (2 therapy sources.) Fracture of Displaced Episodic Active no name no informa tion lower limb (3 bimalleolar sources.) fracture of right lower leg, initial encounter for closed fracture NEGATED Displacement Episodic Active JESSICA Not Avail able no of other OSMAN VILLAGOMEZ (90674) information (3 specified sources.) internal prosthetic devices, implants and grafts, initial encounter Translations: [ DISLOCATION OF PROSTHETIC JOINT, OTH COMPLICATIONS DUE TO INTERNAL JOINT ] NEGATED Epilepsy, Chronic Active no name no informati on no unspecified, information (4 not sources.) intractable, without status epilepticus Translations: [ EPILEPSY UNSPEC W/O MENTION INTRACTABLE ] Essential Essential Chronic Active [facility] hypertension (primary) [facility] (12 sources.) hypertension [place] Translations: [facility] (74075) [ HYPERTENSION NOS, MALIGNANT ESSENTIAL HYPERTENSION, BENIGN ESSENTIAL HYPERTENSION] Disorders of Hyperlipidemia Chronic Active [facility] lipid , unspecified [facility] metabolism (4 Translations: [place] sources.) [ OTHER AND [facility] (78095) UNSPECIFIED HYPERLIPIDEMIA ] NEGATED Knee joint Chronic Active LILA Not Availab le no replacement SATTERLY , III (95082) information (5 sources.) Other meterman Episodic Active no name no informati on aftercare (3 (current) use sources.) of antithrombotic s/antiplatelet s Other meterman Episodic Active no name no informati on aftercare (3 (current) use sources.) of aspirin Spondylosis; Lumbago Episodic Active [facility] Not Av ailable MD shakira (91457) disc disorders; other back problems (1 source.) NEGATED Need for Episodic Active LILA Not Available no prophylactic SATTERLY , III (23993) information (2 vaccination sources.) and inoculation against influenza Translations: [ SCREEN-BACTERI AL DIS NEC] Joint Other joint Episodic Active LILA Not Availa ble disorders and derangement, SATTERLY , III (15897) dislocations; not elsewhere trauma-related classified, (1 source.) lower leg NEGATED Other Episodic Active LILA Not Available no nonspecific SATTERLY , III (54941) information (2 findings on sources.) examination of urine NEGATED Other Episodic Active JESSICA Not Available no specified OSMAN VILLAGOMEZ (84565) information (8 postprocedural sources.) states Translations: [ FAMILY HX OF ISCHEM HEART DIS AND OTH DI, PROCEDURE AND TREATMENT NOT CARRIED OUT,] Other Other Episodic Active MURTAZA SOW JR Not Avai lable connective specified soft (42786) tissue disease tissue (1 source.) disorders NEGATED Pain in joint, Episodic Active LILA Not Tamera ilable no lower leg SATTERLY , III (61230) information (3 sources.) Other Pain in right Episodic Active no name no infor mation non-traumatic ankle and joint joints of disorders (3 right foot sources.) Other Pain in right Episodic Active MURTAZA SOW JR Not Available connective lower leg (29879) tissue disease (1 source.) Other 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 sources.) knee joint Spondylosis; Sacrococcygeal Episodic Active CHERYLON Not Available intervertebral disorders, not YAROSH (60221) disc elsewhere disorders; classified other back Translations: problems (20 [ DISORDERS OF sources.) SACRUM, UNSP THORACIC, THORACOLUM AND LUMBOSACR INTVRT DISC DISORDER, SPINAL STENOSIS, LUMBAR REGION, OTHER AND UNSPECIFIED DISC DISORDER OF UNSPECIFIED REGION, SPINAL STENOSIS OF LUMBAR REGION WITHOUT NEUROGENIC CLAUDICATION] Osteoarthritis Unilateral Chronic Active no name no inf ormation (3 sources.) primary osteoarthritis , right hip Translations: [ UNILATERAL PRIMARY OSTEOARTHRITIS , LEFT ] Nonmalignant Unspecified Episodic Active SUSY KATHY [facility] breast lump in breast [facility] conditions (4 Translations: [place] sources.) [ LUMP OR [place] (91636) IN BREAST] Past or Other Problems Problem Normalized Date Last Normalized Normalized Provider Fa cility Classification Problem(s) Recorded Problem Problem Sta tus Duration Other Encounter for Episodic Completed SUSY KATHY Not Available aftercare (1 adjustment and (86883) source.) management of vascular access device Other Encounter for Episodic Completed CHERYLON Not Avai lable aftercare (2 other YAROSH (59342) sources.) specified surgical aftercare External Fall on same no information no information no name no information Injury - Fall level from (3 sources.) slipping, tripping and stumbling with subsequent striking against other object, initial encounter Other Fitting and Episodic Completed SUSY KATHY Not Av ailable aftercare (1 adjustment of (02091) source.) vascular catheter Other Other Episodic Completed CHERYLON Not Available aftercare (2 specified YAROSH (13170) sources.) aftercare following surgery Other injuries Unspecified no information no information no nam e no information and conditions injury of due to head, initial external encounter causes (3 sources.) Procedures Procedure Normalized Procedure Procedure Result Performer Facility Date 02-20-2018 CT of head without no information MARIE BROCK S [facility] contrast [place] (83583) Meropenem <=4 no name Not Available ( 21652) Meropenem <=4 no name Not Available ( 55537) 02-20-2018 Pelvis With Right Hip no information MARIE Chacon ATES [facility] 2-3VIEWS [place] (60726) Piperacillin/tazobacta <=16 no name Not Tamera ilable (62997) m Piperacillin/tazobacta <=16 no name Not Tamera ilable (50961) m Removal of (cement) no information no name Not Availa ble (42897) spacer REVISION OF KNEE no information no name Not Available (41518) REPLACEMENT, NOT OTHERW 02-20-2018 Tibia and/or fibula no information MARIE MAS ES [facility] X-ray [place] (80234) 02-20-2018 X-ray of right ankle no information MARIE Smith APRN, BA CAM[place] [facility] (37550) Immunizations Normalized Immunization Date Notes Care Provider Facili ty Immunization vaccine no information SUSY KATHY [address] [facility] Translations: [ [place] (81923) vaccine] Results Test Name Value Interpretation Reference Range Date Time Fa cility (Normalized) (Normalized) (Medline Reference) laboratory on 2019-11-20 Lamotrigine 7.1 (no code) 11-20-2019 [facility] (76869 ) [Mass/Vol] 05:34-0400 not yet categorized on 2019-11-17 LAMOTRIGINE, 7.1 (no code) 11-17-2019 Hospital SERUM 05:37-0400 [facility] (90528) laboratory on 2019-11-17 25-Hydroxyvitami 42.80 (no code) 11-17-2019 Hospital n 05:37-0400 [facility] D2+25-Hydroxyvit [facility] wilkinson D3 (71739) [Mass/Vol] Albumin BCG dye 3.7 (no code) 11-17-2019 Hospital [Mass/Vol] 05:37-0400 [facility] (72873) ALP [Catalytic 154 U/L (H) 44 - 147 U/L 11-17-2019 Hosp ital activity/Vol] 05:37 [facility] (01353) ALT [Catalytic 21 U/L (no code) 4 - 40 U/L 11-17-2019 Hospit al activity/Vol] 05:37 [facility] () Anion gap 14 mmol/L (no code) 3 - 11 mmol/L 11-17-2019 Hospital [Moles/Vol] 05:37040 [facility] () AST [Catalytic 26 U/L (no code) 10 - 34 U/L 11-17-2019 Hospi lb activity/Vol] 05:37 [facility] () Basophils (Bld) 0.1 10*3/uL (no code) 0 - 0.3 10*3/uL 11-17-2019 Hospital [#/Vol] 05:37 [facility] () Basophils/100 0.70 % (no code) 0.5 - 1 % 11-17-2019 Hospital WBC (Bld) 05:37 [facility] () Bilirubin 0.3 mg/dL (no code) 0.1 - 1.2 mg/dL 11-17-2019 Hospit al [Mass/Vol] 05:37 [facility] () Calcium 9.0 mg/dL (no code) 8.5 - 10.2 mg/dL 11-17-2019 Hospi lb [Mass/Vol] 05:37040 [facility] (72589) Chloride 105 mmol/L (no code) 95 - 106 mmol/L 11-17-2019 Hospi lb [Moles/Vol] 05:37 [facility] (45950) Cholesterol 165 mg/dL (no code) 180 - 200 mg/dL 11-17-2019 Hosp ital [Mass/Vol] 05:37 [facility] (85997) Cholesterol in 69 mg/dL (no code) 11-17-2019 Hospital HDL [Mass/Vol] 05:37 [facility] (85556) Cholesterol in 77 mg/dL (no code) 0 - 100 mg/dL 11-17-2019 Hos pital LDL [Mass/Vol] 05:37 [facility] (99257) Cholesterol in 19 mg/dL (no code) 11-17-2019 Hospital VLDL [Mass/Vol] 05:37 [facility] (51428) Cholesterol.tota 2.4 {ratio} (L) 11-17-2019 Hospital l/Cholesterol in 05:37 [facility] HDL [Mass ratio] [facility] (38543) Cobalamin 1758.00 pg/mL (H) 200 - 900 pg/mL 11-17-2019 Ho spital (Vitamin B12) 05: [facility] [Mass/Vol] [facility] () Creatinine 0.82 mg/dL (no code) 11-17-2019 Hospital [Mass/Vol] 05:37 [facility] (40449) Eosinophils 0.2 10*3/uL (no code) 0.05 - 0.5 11-17-2019 Hospita l (Bld) [#/Vol] 10*3/uL 05:37 [facility] (43950) Eosinophils/100 2.6 % (no code) 1 - 4 % 11-17-2019 Hospit al WBC (Bld) 05:37 [facility] () Erythrocyte 13.5 % (no code) 11.6 - 14.6 % 11-17-2019 Hospit al distribution 05:37 [facility] width (RBC) [facility] [Ratio] (49732) Folate (Bld) 14.00 (no code) 11-17-2019 Hospital [Mass/Vol] 05:37 [facility] () GFR/1.73 sq 70 (no code) 90 - 120 11-17-2019 Hospital M.predicted MDRD mL/min/{1.73_m2} mL/min/{1.73_m2} 05: [facility] of (S/P/Bld) [Vol [facility] rate/Area] (79754) Globulin (S) 3.0 g/dL (no code) 2 - 3.5 g/dL 11-17-2019 Hospit al [Mass/Vol] 05:37-0400 [facility] () Glucose 81 mg/dL (no code) 60 - 125 mg/dL 11-17-2019 Hospita l [Mass/Vol] 05:37-0400 [facility] () HCO3 (P) 26 (no code) 11-17-2019 Hospital [Moles/Vol] 05:37-0400 [facility] (60572) Hematocrit (Bld) 36.7 % (no code) 36.1 - 50.3 % 11-17-2019 H ospital [Volume 05:37-0400 [facility] of fraction] [facility] (50888) Hemoglobin (Bld) 11.6 g/dL (L) 12.1 - 17.2 g/dL 11-17-2019 Hospital [Mass/Vol] 05:37-0400 [facility] () Iron [Mass/Vol] 36 ug/dL (L) 60 - 170 ug/dL 11-17-2019 H ospital 05:37-0400 [facility] () Lymphocytes 1.46 10*3/uL (no code) 0.9 - 2.9 11-17-2019 Hospita l (Bld) [#/Vol] 10*3/uL 05:37-0400 [facility] () Lymphocytes/100 19.0 % (no code) 20 - 40 % 11-17-2019 Hospit al WBC (Bld) 05:37-0400 [facility] (25307) MCH (RBC) 29.2 pg (no code) 27 - 31 pg 11-17-2019 Hospital [Entitic mass] 05:37-0400 [facility] (80106) MCHC (RBC) 31.6 g/dL (L) 32 - 36 g/dL 11-17-2019 Hospital [Mass/Vol] 05:37-0400 [facility] () MCV (RBC) 92.4 fL (no code) 80 - 100 fL 11-17-2019 Hospital [Entitic vol] 05:37-0400 [facility] (09254) Monocytes (Bld) 0.6 10*3/uL (no code) 0.3 - 0.9 11-17-2019 Hosp ital [#/Vol] 10*3/uL 05:37-0400 [facility] (34825) Monocytes/100 7.8 % (no code) 2 - 8 % 11-17-2019 Hospital WBC (Bld) 05:37 [facility] (86866) Neutrophils 5.38 10*3/uL (no code) 1.7 - 7 10*3/uL 11-17-2019 H ospital (Bld) [#/Vol] 05:37 [facility] (64826) Neutrophils/100 69.9 % (no code) 40 - 60 % 11-17-2019 Hospit al WBC (Bld) 05:37 [facility] (43970) Osmolality Calc 292 (no code) 11-17-2019 Hospital [Osmolality] 05:37 [facility] (55799) Platelet mean 8.4 fL (no code) 7.2 - 11.7 fL 11-17-2019 Hosp ital volume (Bld) 05:37040 [facility] [Entitic vol] [facility] (11230) Platelets (Bld) 461 10*3/uL (H) 150 - 450 11-17-2019 Hosp ital [#/Vol] 10*3/uL 05:37-399 [facility] (10765) Potassium 4.4 mmol/L (no code) 3.7 - 5.2 mmol/L 11-17-2019 Hosp ital [Moles/Vol] 05:37 [facility] (29615) Protein 6.7 g/dL (no code) 6.4 - 8.3 g/dL 11-17-2019 Hospita l [Mass/Vol] 05:37-040 [facility] (00194) RBC (Bld) 3.97 10*6/uL (no code) 4.2 - 6.1 11-17-2019 Hospital [#/Vol] 10*6/uL 05:370400 [facility] (92539) Sodium 141 mmol/L (no code) 135 - 145 mmol/L 11-17-2019 Hosp ital [Moles/Vol] 05:370400 [facility] (32606) Triglyceride 95 mg/dL (no code) 0 - 150 mg/dL 11-17-2019 Hospi lb [Mass/Vol] 05:37040 [facility] (63756) TSH Qn 0.98 (no code) 11-17-2019 Hospital 05:37040 [facility] (10589) Urea nitrogen 19 mg/dL (no code) 7 - 20 mg/dL 11-17-2019 Hospi lb [Mass/Vol] 05:370400 [facility] (43590) WBC (Bld) 7.69 10*3/uL (no code) 3.5 - 10.5 11-17-2019 Hospital [#/Vol] 10*3/uL 05:370400 [facility] (27016) urinalysis on 2018-10-20 Clarity (U) Slightly Cloudy (A) 10-20-2018 Hospital 10:480400 [facility] (16976) Color (U) Yellow (no code) 10-20-2018 Hospital 10:480400 [facility] (54398) Epithelial 0-5/HPF (A) 10-20-2018 Hospital cells.squamous 10:48 [facility] LM.HPF (Urine [facility] sed) [#/Area] (61510) Leukocyte 1+ (A) 10-20-2018 Hospital esterase Test 10:480400 [facility] strip Ql (U) [facility] (59738) Protein (U) Negative (no code) 0 - 20 mg/dL 10-20-2018 Hospita l [Mass/Vol] 10:480400 [facility] (71610) RBC LM.HPF Negative (no code) 0 - 4 /[HPF] 10-20-2018 Hospital (Urine sed) 10:480400 [facility] [#/Area] [facility] (51529) Specific gravity 1.015 (no code) 10-20-2018 Hospital (U) [Rel 10:48 [facility] density] [facility] (92410) WBC LM.HPF 20-40/HPF (A) 10-20-2018 Hospital (Urine sed) 10:480 [facility] [#/Area] [facility] (83978) thyroid on 2018-10-20 TSH Qn 1.34 (no code) 10-20-2018 Hospital 10:480400 [facility] (93994) other on 2018-10-20 Albumin BCG dye 4.1 (no code) 10-20-2018 Hospital [Mass/Vol] 10:480 [facility] (77525) Bacteria LM Ql 2+ (A) 10-20-2018 Hospital (Urine sed) 10:480 [facility] (98798) Bilirubin N/A (A) 10-20-2018 Hospital Confirm Ql (U) 10:480 [facility] (76862) Bilirubin Ql (U) Negative (no code) 10-20-2018 Hospital 10:480400 [facility] (24212) Cholesterol in 24 mg/dL (no code) 10-20-2018 Hospital VLDL [Mass/Vol] 10:480400 [facility] (36409) Cholesterol.tota 2.7 {ratio} (L) 10-20-2018 Hospital l/Cholesterol in 10:480 [facility] HDL [Mass ratio] [facility] (78358) CULTURE SOURCE void (no code) 10-20-2018 Hospital 10:480 [facility] (03907) Erythrocyte 12.7 % (no code) 11.6 - 14.6 % 10-20-2018 Hospit al distribution 10:48 [facility] width (RBC) [facility] [Ratio] (10883) FINAL CULTURE No Growth 48 (no code) 10-20-2018 Hospital RESULTS hours 10:480 [facility] (57113) GFR/1.73 sq 67 (no code) 90 - 120 10-20-2018 Hospital M.predicted MDRD mL/min/{1.73_m2} mL/min/{1.73_m2} 10:48 [facility] (S/P/Bld) [Vol [facility] rate/Area] (91553) Globulin (S) 2.5 g/dL (no code) 2 - 3.5 g/dL 10-20-2018 Hospit al [Mass/Vol] 10:48 [facility] (15158) Glucose Test Negative (no code) 10-20-2018 Hospital strip (U) 10:48 [facility] [Mass/Vol] [facility] (98837) HCO3 (P) 27 (no code) 10-20-2018 Hospital [Moles/Vol] 10:48 [facility] (00607) Hemoglobin Ql Negative (no code) 10-20-2018 Hospital (U) 10:48 [facility] (94916) Ketones (U) Negative (no code) 10-20-2018 Hospital [Mass/Vol] 10:480400 [facility] (59301) MCHC (RBC) 32.9 g/dL (no code) 32 - 36 g/dL 10-20-2018 Hospital [Mass/Vol] 10:480400 [facility] (23896) MEDIA PLATED Setup at 0950 on (no code) 10-20-2018 Hospital 10/20/2018 10:480400 [facility] (28876) Nitrite Ql (U) Negative (no code) 10-20-2018 Hospital 10:480 [facility] (55134) Osmolality Calc 289 (no code) 10-20-2018 Hospital [Osmolality] 10:48 [facility] (98195) pH (U) 7.5 [pH] (no code) 4.6 - 8 [pH] 10-20-2018 Hospital 10:48 [facility] (70965) Platelet mean 8.7 fL (no code) 7.2 - 11.7 fL 10-20-2018 Hosp ital volume (Bld) 10:48 [facility] [Entitic vol] [facility] (60254) PRELIM CULTURE No Growth 24 (no code) 10-20-2018 Hospital RESULTS hours 10:48 [facility] (87114) Urine Volume Urine Volume (no code) 10-20-2018 Hospital Sufficient 10:48 [facility] (10mL) [facility] (95416) Urobilinogen Qn 0.2 (A) 10-20-2018 Hospital (U) {Jessica'U}/dL 10:48 [facility] o f [facility] (23794) Yeast.budding Ql No Yeast present (no code) 10-20-2018 Hosp ital (Urine sed) 10:48 [facility] (45155) no information Culture to (A) 10-20-2018 Hospital follow 10:48 [facility] (13801) metabolic panel on 2018-10-20 ALP [Catalytic 120 U/L (no code) 44 - 147 U/L 10-20-2018 Hosp ital activity/Vol] 10:480 [facility] (25076) ALT [Catalytic 19 U/L (no code) 4 - 40 U/L 10-20-2018 Hospit al activity/Vol] 10:48 [facility] (62746) Anion gap 12 mmol/L (no code) 3 - 11 mmol/L 10-20-2018 Hospital [Moles/Vol] 10:48 [facility] (60272) AST [Catalytic 30 U/L (no code) 10 - 34 U/L 10-20-2018 Hospi lb activity/Vol] 10:48 [facility] (31558) Bilirubin 0.3 mg/dL (no code) 0.1 - 1.2 mg/dL 10-20-2018 Hospit al [Mass/Vol] 10:48 [facility] (49798) Calcium 9.8 mg/dL (no code) 8.5 - 10.2 mg/dL 10-20-2018 Hospi lb [Mass/Vol] 10:48 [facility] (20239) Chloride 105 mmol/L (no code) 95 - 106 mmol/L 10-20-2018 Hospi lb [Moles/Vol] 10:480400 [facility] (78300) Creatinine 0.86 mg/dL (no code) 10-20-2018 Hospital [Mass/Vol] 10:48040 [facility] (95504) Glucose 64 mg/dL (L) 60 - 125 mg/dL 10-20-2018 Hospita l [Mass/Vol] 10:48040 [facility] (46137) Potassium 4.1 mmol/L (no code) 3.7 - 5.2 mmol/L 10-20-2018 Hosp ital [Moles/Vol] 10:480400 [facility] (93787) Protein 6.6 g/dL (no code) 6.4 - 8.3 g/dL 10-20-2018 Hospita l [Mass/Vol] 10:480400 [facility] (25451) Sodium 140 mmol/L (no code) 135 - 145 mmol/L 10-20-2018 Hosp ital [Moles/Vol] 10:48040 [facility] (92241) Urea nitrogen 18 mg/dL (no code) 7 - 20 mg/dL 10-20-2018 Hospi lb [Mass/Vol] 10:48040 [facility] (53132) hematology on 2018-10-20 Basophils (Bld) 0.0 10*3/uL (no code) 0 - 0.3 10*3/uL 10-20-2018 Hospital [#/Vol] 10:48040 [facility] (27721) Basophils/100 0.50 % (no code) 0.5 - 1 % 10-20-2018 Hospital WBC (Bld) 10:48 [facility] (40555) Eosinophils 0.1 10*3/uL (no code) 0.05 - 0.5 10-20-2018 Hospita l (Bld) [#/Vol] 10*3/uL 10:480400 [facility] (13955) Eosinophils/100 2.6 % (no code) 1 - 4 % 10-20-2018 Hospit al WBC (Bld) 10:48 [facility] [facility] ([id number]) Hematocrit (Bld) 42.2 % (no code) 36.1 - 50.3 % 10-20-2018 H ospital [Volume 10:48040 [facility]] [facility] ([id number]) Hemoglobin (Bld) 13.9 g/dL (no code) 12.1 - 17.2 g/dL 10-20-2018 Hospital [Mass/Vol] 10:48 [facility] ([id number]) Lymphocytes 1.14 10*3/uL (no code) 0.9 - 2.9 10-20-2018 Hospita l (Bld) [#/Vol] 10*3/uL 10:48 [facility] () Lymphocytes/100 26.9 % (no code) 20 - 40 % 10-20-2018 Hospit al WBC (Bld) 10:48 [facility] ([id number]) MCH (RBC) 31.7 pg (H) 27 - 31 pg 10-20-2018 Hospital [Entitic mass] 10:48 [facility] ([id number]) MCV (RBC) 96.3 fL (no code) 80 - 100 fL 10-20-2018 Hospital [Entitic vol] 10:48040 [facility] ([id number]) Monocytes (Bld) 0.3 10*3/uL (no code) 0.3 - 0.9 10-20-2018 Hosp ital [#/Vol] 10*3/uL 10:48 [facility] ([id number]) Monocytes/100 6.6 % (no code) 2 - 8 % 10-20-2018 Hospital WBC (Bld) 10:48 [facility] ([id number]) Neutrophils 2.69 10*3/uL (no code) 1.7 - 7 10*3/uL 10-20-2018 H ospital (Bld) [#/Vol] 10:48 [facility] ([id number]) Neutrophils/100 63.4 % (no code) 40 - 60 % 10-20-2018 Hospit al WBC (Bld) 10:48 [facility] ([id number]) Platelets (Bld) 319 10*3/uL (no code) 150 - 450 10-20-2018 Hosp ital [#/Vol] 10*3/uL 10:480400 [facility] ([id number]) RBC (Bld) 4.38 10*6/uL (no code) 4.2 - 6.1 10-20-2018 Hospital [#/Vol] 10*6/uL 10:480400 [facility] ([id number]) WBC (Bld) 4.24 10*3/uL (L) 3.5 - 10.5 10-20-2018 Hospital [#/Vol] 10*3/uL 10:480400 [facility] ([id number]) cardiac on 2018-10-20 Cholesterol 207 mg/dL (no code) 180 - 200 mg/dL 10-20-2018 Hosp ital [Mass/Vol] 10:480400 [facility] ([id number]) Cholesterol in 76 mg/dL (no code) 10-20-2018 Hospital HDL [Mass/Vol] 10:480400 [facility] ([id number]) Cholesterol in 107 mg/dL (H) 0 - 100 mg/dL 10-20-2018 Hos pital LDL [Mass/Vol] 10:480400 [facility] ([id number]) Triglyceride 120 mg/dL (no code) 0 - 150 mg/dL 10-20-2018 Hospi lb [Mass/Vol] 10:480400 [facility] ([id number]) other on 2017-07-23 Medical Clerical Assistant Cyto Comment (no code) 07-23-2017 [facility] (0 0000) stain ID Nom [id number] (Cervical or vaginal smear or scraping) Microscopic . (no code) 07-23-2017 [facility] ([id number] ) observation 16:23-0500 Note: Comment (no code) 07-23-2017 [facility] ([id number] ) 16:23-0500 QC reviewed by: Comment (no code) 07-23-2017 [facility] (0 0000) 16:22-0500 Statement of Comment (no code) 07-23-2017 [facility] (0000 0) adequacy Cyto 16:22-0500 stain Interp (Cervical or vaginal smear or scraping) imm/path on 2017-07-23 Cytology report Comment (no code) 07-23-2017 [facility] (0 0000) Cyto stain.thin 16:23-0500 prep Doc (Cervical or vaginal smear or scraping) Pathology report Comment (no code) 07-23-2017 [facility] ( [id number]) final diagnosis 16:22-0500 Narrative other on 2017-04-16 FINAL CULTURE Negative (no code) 04-16-2017 Not Availabl e RESULTS 08:32-0400 ([id number]) MEDIA PLATED Setup at 07:51 (no code) 04-16-2017 Not Availa ble on 04/16/2017 08:32-0400 ([id number]) other on 2017-04-10 Albumin BCG dye 4.2 (no code) 04-10-2017 Not Availa ble [Mass/Vol] 12:180400 (32211) GFR/1.73 sq 64 (no code) 90 - 120 04-10-2017 Not Availa ble M.predicted MDRD mL/min/{1.73_m2} mL/min/{1.73_m2} 12:180400 ([id number]) (S/P/Bld) [Vol rate/Area] Globulin (S) 2.8 g/dL (no code) 2 - 3.5 g/dL 04-10-2017 Not Av ailable [Mass/Vol] 12:180400 (06076) HCO3 (P) 26 (no code) 04-10-2017 Not Available [Moles/Vol] 12:0400 (80611) INR Coag 0.9 (L) 04-10-2017 Not Available (Platelet poor 12:180400 (29754) plasma or blood) [Relative time] Osmolality Calc 288 (no code) 04-10-2017 Not Availa ble [Osmolality] 12:0400 (69045) metabolic panel on 2017-04-10 ALP [Catalytic 132 U/L (H) 44 - 147 U/L 04-10-2017 Not Available activity/Vol] 12:180400 (99034) ALT [Catalytic 25 U/L (no code) 4 - 40 U/L 04-10-2017 Not Av ailable activity/Vol] 12:180400 (40335) Anion gap 16 mmol/L (H) 3 - 11 mmol/L 04-10-2017 Not Avai lable [Moles/Vol] 12: () AST [Catalytic 32 U/L (no code) 10 - 34 U/L 04-10-2017 Not A vailable activity/Vol] 12: () Bilirubin 0.3 mg/dL (no code) 0.1 - 1.2 mg/dL 04-10-2017 Not Av ailable [Mass/Vol] 12: (67130) Calcium 9.5 mg/dL (no code) 8.5 - 10.2 mg/dL 04-10-2017 Not A vailable [Mass/Vol] : (16865) Chloride 101 mmol/L (no code) 95 - 106 mmol/L 04-10-2017 Not A vailable [Moles/Vol] : () Creatinine 0.89 mg/dL (no code) 04-10-2017 Not Available [Mass/Vol] : (07859) Glucose 86 mg/dL (no code) 60 - 125 mg/dL 04-10-2017 Not Tamera ilable [Mass/Vol] : () Potassium 4.2 mmol/L (no code) 3.7 - 5.2 mmol/L 04-10-2017 Not Available [Moles/Vol] : (11058) Protein 7.0 g/dL (no code) 6.4 - 8.3 g/dL 04-10-2017 Not Tamera ilable [Mass/Vol] : (21434) Sodium 139 mmol/L (no code) 135 - 145 mmol/L 04-10-2017 Not Available [Moles/Vol] : (43601) Urea nitrogen 16 mg/dL (no code) 7 - 20 mg/dL 04-10-2017 Not A vailable [Mass/Vol] : (09237) hematology on 2017-04-10 PT Coag (PPP) 10.7 (no code) 04-10-2017 Not Availabl e [Time] :18-0400 (59859) other on 2017-01-17 Amikacin <=16 (S) Not Available (98942) Amoxicillin/K <=8/4 (S) Not Available Clavulanate (30584) Ampicillin <=8 (S) Not Available (45800) Ampicillin/Sulba <=8/4 (S) Not Available ctam (43797) Aztreonam <=8 (S) Not Available (55029) Cefazolin <=8 (S) Not Available (87859) Cefepime <=8 (S) Not Available (22439) Cefotaxime <=2 (S) Not Available (88113) Cefotaxime/K <=0.5 (no code) Not Available Clavulanate (56370) Cefoxitin <=8 (S) Not Available (91132) Ceftazidime <=1 (S) Not Available (49023) Ceftazidime/K <=0.25 (no code) Not Available Clavulanate (05613) Ceftriaxone <=8 (S) Not Available (14513) Cefuroxime <=4 (S) Not Available (10044) Cephalothin <=8 (S) Not Available (35386) CULTURE SOURCE clinic (no code) 01-17-2017 Not Availab le collection 19: (83684) Ertapenem <=1 (S) Not Available (31608) FINAL CULTURE Proteus (no code) 01-17-2017 Not Availabl e RESULTS mirabilis 19: (20625) (Isolate 1) Gentamicin <=4 (S) Not Available (04827) Imipenem <=4 (S) Not Available (08383) Levofloxacin <=2 (S) Not Available (39824) MEDIA PLATED Setup at 17:16 (no code) 01-17-2017 Not Availa ble on 01/17/2017 19:0400 (41721) Nitrofurantoin >64 (R) Not Available (82933) Piperacillin <=16 (S) Not Available (65556) PRELIM CULTURE 20,000 gram neg (no code) 01-17-2017 Not Tamera ilable RESULTS bacillus 19:0400 (57083) KILEY / ID to follow Tetracycline >8 (R) Not Available (73975) Tigecycline N/R (no code) Not Available (33502) Tobramycin <=4 (S) Not Available (94627) Trimethoprim/ <=2/38 (S) Not Available Sulfamethoxazole (67023) metabolic panel on 2017-01-17 Protein mass g/dL (S) 6.4 - 8.3 g/dL Not Avail able conc (10717) urinalysis on 2016-12-05 Clarity (U) Clear (no code) 12-05-2016 Not Available 18:00-0400 (45365) Color (U) Yellow (no code) 12-05-2016 Not Available 18:00-0400 (98983) Epithelial 5-10/HPF (A) 12-05-2016 Not Available cells.squamous 18:00-0400 (53212) LM.HPF (Urine sed) [#/Area] Leukocyte Trace (A) 12-05-2016 Not Available esterase Test 18:00-0400 (68198) strip Ql (U) Protein (U) Negative (no code) 0 - 20 mg/dL 12-05-2016 Not Tamera ilable [Mass/Vol] 18:00-0400 (64466) RBC LM.HPF Negative (no code) 0 - 4 /[HPF] 12-05-2016 Not Avai lable (Urine sed) 18:00-0400 (07488) [#/Area] Specific gravity 1.020 (no code) 12-05-2016 Not Avail able (U) [Rel 18:00-0400 (45464) density] WBC LM.HPF 10-20/HPF (A) 12-05-2016 Not Available (Urine sed) 18:00-0400 (10953) [#/Area] other on 2016-12-05 Albumin BCG dye 3.5 (L) 12-05-2016 Not Availa ble [Mass/Vol] 18:00-0400 (36084) Amikacin <=16 (S) Not Available (78986) Amoxicillin/K <=8/4 (S) Not Available Clavulanate (46974) Ampicillin <=8 (S) Not Available (28372) Ampicillin/Sulba <=8/4 (S) Not Available ctam (82312) Aztreonam <=8 (S) Not Available (59302) Bacteria LM Ql Trace (A) 12-05-2016 Not Availab le (Urine sed) 18:00-0400 (17465) Bilirubin N/A (A) 12-05-2016 Not Available Confirm Ql (U) 18:00-0400 (43158) Bilirubin Ql (U) Negative (no code) 12-05-2016 Not Avail able 18:00-0400 (78211) Cefazolin <=8 (S) Not Available (06530) Cefepime <=8 (S) Not Available (95191) Cefotaxime <=2 (S) Not Available (84757) Cefotaxime/K <=0.5 (no code) Not Available Clavulanate (58596) Cefoxitin <=8 (S) Not Available (74574) Ceftazidime <=1 (S) Not Available (10063) Ceftazidime/K <=0.25 (no code) Not Available Clavulanate (23776) Ceftriaxone <=8 (S) Not Available (14207) Cefuroxime <=4 (S) Not Available (50632) Cephalothin <=8 (S) Not Available (10781) CULTURE SOURCE void (no code) 12-05-2016 Not Availab le 18:57-0400 (88302) Ertapenem <=1 (S) Not Available (22816) Erythrocyte 11.9 % (no code) 11.6 - 14.6 % 12-05-2016 Not Av ailable distribution 18:00-0400 (86949) width (RBC) [Ratio] FINAL CULTURE Proteus (no code) 12-05-2016 Not Availabl e RESULTS mirabilis 18:57-0400 (07825) (Isolate 1) Gentamicin <=4 (S) Not Available (78955) GFR/1.73 sq 61 (no code) 90 - 120 12-05-2016 Not Availa ble M.predicted MDRD mL/min/{1.73_m2} mL/min/{1.73_m2} 18:00-0400 (05439) (S/P/Bld) [Vol rate/Area] Globulin (S) 2.4 g/dL (no code) 2 - 3.5 g/dL 12-05-2016 Not Av ailable [Mass/Vol] 18:00-0400 (74185) Glucose Test Negative (no code) 12-05-2016 Not Available strip (U) 18:00-0400 (36481) [Mass/Vol] HCO3 (P) 27 (no code) 12-05-2016 Not Available [Moles/Vol] 18:00-0400 (86096) Hemoglobin Ql Negative (no code) 12-05-2016 Not Availabl e (U) 18:00-0400 (93912) Imipenem <=4 (S) Not Available (46769) Ketones (U) Negative (no code) 12-05-2016 Not Available [Mass/Vol] 18:00-0400 (62851) Levofloxacin <=2 (S) Not Available (43426) MCHC (RBC) 31.6 g/dL (L) 32 - 36 g/dL 12-05-2016 Not Avai lable [Mass/Vol] 18:00-0400 (13281) MEDIA PLATED Setup at 18:09 (no code) 12-05-2016 Not Availa ble on 12/05/2016 18:57-0400 (40363) Mucus Ql (Urine 2+ (A) 12-05-2016 Not Availa ble sed) 18:00-0400 (33378) Nitrite Ql (U) Negative (no code) 12-05-2016 Not Availab le 18:00-0400 (91885) Nitrofurantoin >64 (R) Not Available (55765) Osmolality Calc 292 (no code) 12-05-2016 Not Availa ble [Osmolality] 18:00-0400 (96665) pH (U) 6.0 [pH] (no code) 4.6 - 8 [pH] 12-05-2016 Not Avail able 18:00-0400 (15287) Piperacillin <=16 (S) Not Available (57561) Platelet mean 8.5 fL (no code) 7.2 - 11.7 fL 12-05-2016 Not Available volume (Bld) 18:00-0400 (42246) [Entitic vol] PRELIM CULTURE Negative (no code) 12-05-2016 Not Availab le RESULTS 18:57-0400 (06796) Tetracycline >8 (R) Not Available (17738) Tigecycline N/R (no code) Not Available (76077) Tobramycin <=4 (S) Not Available (19323) Trimethoprim/ <=2/38 (S) Not Available Sulfamethoxazole (00211) Urine Volume Urine Volume (no code) 12-05-2016 Not Availabl e Sufficient : (24481) (10mL) Urobilinogen Qn 0.2 (A) 12-05-2016 Not Availa ble (U) {Jessica'U}/dL 18: (67145) Yeast.budding Ql No Yeast present (no code) 12-05-2016 Not Available (Urine sed) 18: (82883) no information Culture to (A) 12-05-2016 Not Availab le follow : (30911) metabolic panel on 2016-12-05 ALP [Catalytic 121 U/L (no code) 44 - 147 U/L 12-05-2016 Not Available activity/Vol] 18: (83858) ALT [Catalytic 14 U/L (no code) 4 - 40 U/L 12-05-2016 Not Av ailable activity/Vol] 18:0 (24087) Anion gap 15 mmol/L (H) 3 - 11 mmol/L 12-05-2016 Not Avai lable [Moles/Vol] : (09353) AST [Catalytic 21 U/L (no code) 10 - 34 U/L 12-05-2016 Not A vailable activity/Vol] 18:0 (44795) Bilirubin 0.2 mg/dL (no code) 0.1 - 1.2 mg/dL 12-05-2016 Not Av ailable [Mass/Vol] 18:0 (53542) Calcium 9.2 mg/dL (no code) 8.5 - 10.2 mg/dL 12-05-2016 Not A vailable [Mass/Vol] :0 (09921) Chloride 104 mmol/L (no code) 95 - 106 mmol/L 12-05-2016 Not A vailable [Moles/Vol] 18:0 (01014) Creatinine 0.94 mg/dL (no code) 12-05-2016 Not Available [Mass/Vol] : (31048) Glucose 92 mg/dL (no code) 60 - 125 mg/dL 12-05-2016 Not Tamera ilable [Mass/Vol] 18:00-0400 (01302) Potassium 4.2 mmol/L (no code) 3.7 - 5.2 mmol/L 12-05-2016 Not Available [Moles/Vol] 18:00-0400 (89421) Protein g/dL (S) 6.4 - 8.3 g/dL Not Availa ble [Mass/Vol] (54289) Protein 5.9 g/dL (L) 6.4 - 8.3 g/dL 12-05-2016 Not Tamera ilable [Mass/Vol] 18:00-0400 (38110) Sodium 142 mmol/L (no code) 135 - 145 mmol/L 12-05-2016 Not Available [Moles/Vol] 18:00-0400 (76458) Urea nitrogen 11 mg/dL (no code) 7 - 20 mg/dL 12-05-2016 Not A vailable [Mass/Vol] 18:00-0400 (86446) hematology on 2016-12-05 Basophils (Bld) 0.0 10*3/uL (no code) 0 - 0.3 10*3/uL 12-05-2016 Not Available [#/Vol] 18:00-0400 (65908) Basophils/100 0.30 % (no code) 0.5 - 1 % 12-05-2016 Not Avai lable WBC (Bld) 18:00-0400 (06397) Eosinophils 0.2 10*3/uL (no code) 0.05 - 0.5 12-05-2016 Not Tamera ilable (Bld) [#/Vol] 10*3/uL 18:00-0400 (02044) Eosinophils/100 3.9 % (no code) 1 - 4 % 12-05-2016 Not Av ailable WBC (Bld) 18:00-0400 (58835) Hematocrit (Bld) 33.5 % (L) 36.1 - 50.3 % 12-05-2016 N ot Available [Volume 18:00-0400 (25509) fraction] Hemoglobin (Bld) 10.6 g/dL (L) 12.1 - 17.2 g/dL 12-05-2016 Not Available [Mass/Vol] 18:00-0400 (44462) Lymphocytes 1.61 10*3/uL (no code) 0.9 - 2.9 12-05-2016 Not Tamera ilable (Bld) [#/Vol] 10*3/uL 18:00-0400 (98967) Lymphocytes/100 26.5 % (no code) 20 - 40 % 12-05-2016 Not Av ailable WBC (Bld) 18:00-0400 (50851) MCH (RBC) 31.0 pg (no code) 27 - 31 pg 12-05-2016 Not Availab le [Entitic mass] 18:00-0400 (98259) MCV (RBC) 98.0 fL (H) 80 - 100 fL 12-05-2016 Not Availa ble [Entitic vol] 18:00-0400 (99299) Monocytes (Bld) 0.6 10*3/uL (no code) 0.3 - 0.9 12-05-2016 Not Available [#/Vol] 10*3/uL 18:00-0400 (43032) Monocytes/100 9.5 % (no code) 2 - 8 % 12-05-2016 Not Avai lable WBC (Bld) 18:00-0400 (85167) Neutrophils 3.63 10*3/uL (no code) 1.7 - 7 10*3/uL 12-05-2016 N ot Available (Bld) [#/Vol] 18:00-0400 (41547) Neutrophils/100 59.8 % (no code) 40 - 60 % 12-05-2016 Not Av ailable WBC (Bld) 18:00-0400 (66252) Platelets (Bld) 541 10*3/uL (H) 150 - 450 12-05-2016 Not Available [#/Vol] 10*3/uL 18:00-0400 (52928) RBC (Bld) 3.42 10*6/uL (L) 4.2 - 6.1 12-05-2016 Not Avail able [#/Vol] 10*6/uL 18:00-0400 (36329) WBC (Bld) 6.08 10*3/uL (no code) 3.5 - 10.5 12-05-2016 Not Avai lable [#/Vol] 10*3/uL 18:00-0400 (22353) cardiac on 2016-12-05 Natriuretic 80.90 pg/mL (no code) 0 - 100 pg/mL 12-05-2016 Not Available peptide B (Bld) 18:00-0400 (21130) [Mass/Vol] urinalysis on 2016-09-04 Clarity (U) Clear (no code) 09-04-2016 Not Available 09:200400 (05847) Color (U) Yellow (no code) 09-04-2016 Not Available 09:200400 (60179) Epithelial 0-5/HPF (A) 09-04-2016 Not Available cells.squamous 09:0400 (97515) LM.HPF (Urine sed) [#/Area] Leukocyte Negative (no code) 09-04-2016 Not Available esterase Test 09:0 (56079) strip Ql (U) Protein (U) Negative (no code) 0 - 20 mg/dL 09-04-2016 Not Tamera ilable [Mass/Vol] 09:0400 (74237) RBC LM.HPF Negative (no code) 0 - 4 /[HPF] 09-04-2016 Not Avai lable (Urine sed) 09:200400 (33054) [#/Area] Specific gravity 1.020 (no code) 09-04-2016 Not Avail able (U) [Rel 09:200400 (49461) density] WBC LM.HPF 0-2/HPF (A) 09-04-2016 Not Available (Urine sed) 09:200400 (94752) [#/Area] thyroid on 2016-09-04 TSH Qn 1.05 (no code) 09-04-2016 Not Available 09:200400 (15853) other on 2016-09-04 Albumin BCG dye 4.0 (no code) 09-04-2016 Not Availa ble [Mass/Vol] 09:200400 (77436) Bacteria LM Ql Negative (no code) 09-04-2016 Not Availab le (Urine sed) 09:200400 (75415) Bilirubin N/A (A) 09-04-2016 Not Available Confirm Ql (U) 09:0400 (33532) Bilirubin Ql (U) Negative (no code) 09-04-2016 Not Avail able 09:0400 (23998) Cholesterol in 20 mg/dL (no code) 09-04-2016 Not Availab le VLDL [Mass/Vol] 09:0 (87893) Cholesterol.tota 2.2 {ratio} (L) 09-04-2016 Not Avail able l/Cholesterol in 09:0 (67437) HDL [Mass ratio] Erythrocyte 12.4 % (no code) 11.6 - 14.6 % 09-04-2016 Not Av ailable distribution 09: (84910) width (RBC) [Ratio] GFR/1.73 sq 69 (no code) 90 - 120 09-04-2016 Not Availa ble M.predicted MDRD mL/min/{1.73_m2} mL/min/{1.73_m2} 09: (05750) (S/P/Bld) [Vol rate/Area] Globulin (S) 2.6 g/dL (no code) 2 - 3.5 g/dL 09-04-2016 Not Av ailable [Mass/Vol] 09:0 (26133) Glucose Test Negative (no code) 09-04-2016 Not Available strip (U) 09:0 (28134) [Mass/Vol] HCO3 (P) 29 (no code) 09-04-2016 Not Available [Moles/Vol] 09:200400 (23486) Hemoglobin Ql Trace-intact (A) 09-04-2016 Not Availab le (U) 09:0 (62244) Ketones (U) Negative (no code) 09-04-2016 Not Available [Mass/Vol] 09:200400 (59929) MCHC (RBC) 32.0 g/dL (no code) 32 - 36 g/dL 09-04-2016 Not Avai lable [Mass/Vol] 09:0400 (94674) Nitrite Ql (U) Negative (no code) 09-04-2016 Not Availab le 09:200400 (66978) Osmolality Calc 299 (H) 09-04-2016 Not Availa ble [Osmolality] 09:0 (92819) pH (U) 6.0 [pH] (no code) 4.6 - 8 [pH] 09-04-2016 Not Avail able 09: (34316) Platelet mean 8.4 fL (no code) 7.2 - 11.7 fL 09-04-2016 Not Available volume (Bld) 09: () [Entitic vol] Urine Volume Urine Volume (no code) 09-04-2016 Not Availabl e Sufficient 09: () (10mL) Urobilinogen Qn 0.2 (A) 09-04-2016 Not Availa ble (U) {Jessica'U}/dL 09: () Yeast.budding Ql No Yeast present (no code) 09-04-2016 Not Available (Urine sed) 09: () no information Urine Saved if (A) 09-04-2016 Not Avai lable Culture Needed 09: () (48hrs from time of collection) metabolic panel on 2016-09-04 ALP [Catalytic 90 U/L (no code) 44 - 147 U/L 09-04-2016 Not Available activity/Vol] 09: (06808) ALT [Catalytic 32 U/L (no code) 4 - 40 U/L 09-04-2016 Not Av ailable activity/Vol] 09: (07991) Anion gap 13 mmol/L (no code) 3 - 11 mmol/L 09-04-2016 Not Avai lable [Moles/Vol] 09: (18603) AST [Catalytic 35 U/L (no code) 10 - 34 U/L 09-04-2016 Not A vailable activity/Vol] 09: (78465) Bilirubin 0.4 mg/dL (no code) 0.1 - 1.2 mg/dL 09-04-2016 Not Av ailable [Mass/Vol] 09: (10762) Calcium 9.5 mg/dL (no code) 8.5 - 10.2 mg/dL 09-04-2016 Not A vailable [Mass/Vol] 09: (99789) Chloride 106 mmol/L (no code) 95 - 106 mmol/L 09-04-2016 Not A vailable [Moles/Vol] 09: (50106) Creatinine 0.84 mg/dL (no code) 09-04-2016 Not Available [Mass/Vol] 09: (55523) Glucose 84 mg/dL (no code) 60 - 125 mg/dL 09-04-2016 Not Tamera ilable [Mass/Vol] 09: (83829) Potassium 3.9 mmol/L (no code) 3.7 - 5.2 mmol/L 09-04-2016 Not Available [Moles/Vol] 09: (02106) Protein 6.6 g/dL (no code) 6.4 - 8.3 g/dL 09-04-2016 Not Tamera ilable [Mass/Vol] 09: (30476) Sodium 144 mmol/L (no code) 135 - 145 mmol/L 09-04-2016 Not Available [Moles/Vol] 09: (99384) Urea nitrogen 19 mg/dL (no code) 7 - 20 mg/dL 09-04-2016 Not A vailable [Mass/Vol] 09: (89483) hematology on 2016-09-04 Basophils (Bld) 0.0 10*3/uL (no code) 0 - 0.3 10*3/uL 09-04-2016 Not Available [#/Vol] 09: (97715) Basophils/100 0.60 % (no code) 0.5 - 1 % 09-04-2016 Not Avai lable WBC (Bld) 09: (78527) Eosinophils 0.2 10*3/uL (no code) 0.05 - 0.5 09-04-2016 Not Tamera ilable (Bld) [#/Vol] 10*3/uL 09: (65767) Eosinophils/100 4.0 % (no code) 1 - 4 % 09-04-2016 Not Av ailable WBC (Bld) 09: (84906) ESR (Bld) 7 mm/h (L) 09-04-2016 Not Available [Velocity] 09: (95447) Hematocrit (Bld) 41.6 % (no code) 36.1 - 50.3 % 09-04-2016 N ot Available [Volume 09: (83094) fraction] Hemoglobin (Bld) 13.3 g/dL (no code) 12.1 - 17.2 g/dL 09-04-2016 Not Available [Mass/Vol] 09: (14872) Lymphocytes 2.01 10*3/uL (no code) 0.9 - 2.9 09-04-2016 Not Tamera ilable (Bld) [#/Vol] 10*3/uL 09:0400 (24488) Lymphocytes/100 42.5 % (no code) 20 - 40 % 09-04-2016 Not Av ailable WBC (Bld) 09: (25370) MCH (RBC) 31.1 pg (H) 27 - 31 pg 09-04-2016 Not Availab le [Entitic mass] 09: (56259) MCV (RBC) 97.2 fL (H) 80 - 100 fL 09-04-2016 Not Availa ble [Entitic vol] 09: (78700) Monocytes (Bld) 0.4 10*3/uL (no code) 0.3 - 0.9 09-04-2016 Not Available [#/Vol] 10*3/uL 09:0400 (36340) Monocytes/100 8.2 % (no code) 2 - 8 % 09-04-2016 Not Avai lable WBC (Bld) 09:0 (66353) Neutrophils 2.11 10*3/uL (no code) 1.7 - 7 10*3/uL 09-04-2016 N ot Available (Bld) [#/Vol] 09:0400 (54093) Neutrophils/100 44.7 % (no code) 40 - 60 % 09-04-2016 Not Av ailable WBC (Bld) 09:0400 ([id number]) Platelets (Bld) 304 10*3/uL (no code) 150 - 450 09-04-2016 Not Available [#/Vol] 10*3/uL 09:200400 ([id number]) RBC (Bld) 4.28 10*6/uL (no code) 4.2 - 6.1 09-04-2016 Not Avail able [#/Vol] 10*6/uL 09: (42285) WBC (Bld) 4.73 10*3/uL (L) 3.5 - 10.5 09-04-2016 Not Avai lable [#/Vol] 10*3/uL 09: ([id number]) cardiac on 2016-09-04 Cholesterol 176 mg/dL (no code) 180 - 200 mg/dL 09-04-2016 Not Available [Mass/Vol] 09: ([id number]) Cholesterol in 79 mg/dL (no code) 09-04-2016 Not Availab le HDL [Mass/Vol] 09: (94263) Cholesterol in 77 mg/dL (no code) 0 - 100 mg/dL 09-04-2016 Not Available LDL [Mass/Vol] 09:0 ([id number]) CRP [Mass/Vol] 0.30 (no code) 09-04-2016 Not Availab le 09: (29492) Triglyceride 102 mg/dL (no code) 0 - 150 mg/dL 09-04-2016 Not A vailable [Mass/Vol] 09: (81890) Vital Signs The data below is from unstructured sources Vital Response Date/Time Temperature (Fahrenheit) 97.2 degree s F (97.6 - 99.5) 09/02/2015 1:29pm Temperature (Calculated Celsius) 36. 46292 degrees C (36.4 - 37.5) 09/02/2015 1:29pm Pulse Rate (adult) 70 bpm (60 - 90) 09/02/2015 11:25am Respiratory Rate 16 bpm (12 - 24) 09/02/2015 11:25am O2 Sat by Pulse Oximetry 98 % (88 - 100) 09/02/2015 11:25am Blood Pressure 136/82 mm Hg 09/02/2015 11:25am Blood Pressure Mean 100 mm Hg 09/02/2015 11:25am Pain Pain Intensity 2 2015 11:25am Height (Feet) 5 feet 11:25am Height (Inches) 1 inches 09/02/2015 11:25am Height (Calculated Centimeters) 154. 938918 cm 09/02/2015 11:25am Weight (Pounds) 250 pounds 09/02/2015 11:25am Weight (Calculated Kilograms) 113.39 8094 kilograms 09/02/2015 11:25am Calculated BMI 47.23 11:25am Vital Response Date/Time Temperature (Fahrenheit) 96.9 degree s F (97.6 - 99.5) 02/20/2018 7:04pm Temperature (Calculated Celsius) 36. 76181 degrees C (36.4 - 37.5) 02/20/2018 7:04pm Pulse Rate (adult) 76 bpm (60 - 90) 02/20/2018 7:04pm Respiratory Rate 16 bpm (12 - 24) 02/20/2018 7:04pm O2 Sat by Pulse Oximetry 100 % (88 - 100) 02/20/2018 7:04pm Blood Pressure 170/93 mm Hg 02/20/2018 7:04pm Blood Pressure Mean 118 mm Hg (65 - 110) 02/20/2018 7:04pm Pain Numeric Pain Scale 10-Worst Possible Pain 02/20/2018 8:31pm Height (Feet) 5 feet 11/2017 7:04pm Height (Inches) 3.00 inches 02/20/2018 7:04pm Height (Calculated Centimeters) 160. 397799 cm 02/20/2018 7:04pm Height Method Stated 11/2017 7:04pm Weight (Pounds) 270 pounds 02/20/2018 7:04pm Weight (Calculated Grams) 797730.94 gm 02/20/2018 7:04pm Weight (Calculated Kilograms) 122.46 9941 kilograms 02/20/2018 7:04pm Weight Method Stated 11/2017 7:04pm Capillary Refill Capillary Refill Less Than 3 Seconds 02/20/2018 7:04pm Height 5 ft 3 in 018 7:04pm Weight 270 lb 02/20/2018 7:04pm Body Mass Index 47.8 kg/m^2 02/20/2018 7:04pm Vital Response Date/Time Temperature (Fahrenheit) 96.9 degree s F (97.6 - 99.5) 02/20/2018 7:04pm Temperature (Calculated Celsius) 36. 09264 degrees C (36.4 - 37.5) 02/20/2018 7:04pm Pulse Rate (adult) 76 bpm (60 - 90) 02/20/2018 7:04pm Respiratory Rate 16 bpm (12 - 24) 02/20/2018 7:04pm O2 Sat by Pulse Oximetry 100 % (88 - 100) 02/20/2018 7:04pm Blood Pressure 170/93 mm Hg 02/20/2018 7:04pm Blood Pressure Mean 118 mm Hg (65 - 110) 02/20/2018 7:04pm Pain Numeric Pain Scale 10-Worst Possible Pain 02/20/2018 8:31pm Height (Feet) 5 feet 11/2017 7:04pm Height (Inches) 3.00 inches 02/20/2018 7:04pm Height (Calculated Centimeters) 160. 670831 cm 02/20/2018 7:04pm Height Method Stated 11/2017 7:04pm Weight (Pounds) 270 pounds 02/20/2018 7:04pm Weight (Calculated Grams) 134915.94 gm 02/20/2018 7:04pm Weight (Calculated Kilograms) 122.46 9941 kilograms 02/20/2018 7:04pm Weight Method Stated 11/2017 7:04pm Capillary Refill Capillary Refill Less Than 3 Seconds 02/20/2018 7:04pm Height 5 ft 3 in 018 7:04pm Weight 270 lb 02/20/2018 7:04pm Body Mass Index 47.8 kg/m^2 02/20/2018 7:04pm Interventions No Information Plan of Treatment The data below is from unstructured sources Discharge Date 09/02/15 5:35pm Disposition 03 XFER SNF Condition at Discharge Stable Instructions/Education Provided NO I NSTRUCTIONS GIVEN Prescriptions See Medication Section Referrals CAMRYN BENSON DO - SUSY CHAVEZ MD - Primary Care Physician SUSY CHAVEZ MD - Primary Care Physician Additional Instructions/Education Al l discharge instructions reviewed with patient and/or family. Voiced understanding. medications as instructed. continue usual medications. Usual diet. DO NOT USE THE RT ARM DURING PHYSICAL THERAPY UNTIL RELEASED BY DR. BENSON. DO NOT USE THE GROSHONG CATHETER UNTIL SEEN BY DR. BENSON. LEAVE GROSHONG ACCESSED UNTIL SEEN BY DR. BENSON. Peripheral IVs for antibiotics only until seen by Dr. Benson. Ice pack for 20 minute intervals 60 times daily as needed for pain and swelling. When released to begin using the groshong catheter by Dr. Benson, evaluate for swelling or pain when infusing medications. If patient complains of pain or if swelling appreciated, stop using the groshong IMMEDIATELY! Follow-up with Dr. Benson on Saturday for recheck and possible need for revision of the groshong. Call first thing Saturday morning for appointment time. return immediately to the emergency department for worsened pain, swelling, redness, drainage, fever, or any other concerns. Activity Details Follow Up Next available Reason: F /U Discharge Date 02/20/18 9:08pm Disposition 01 HOME, SELF-CARE Condition at Discharge Stable Instructions/Education Provided Ankl e Fracture (DC) Prescriptions See Medication Section Referrals EZE VALENCIA MD Address: [address] [place] [id number] SUSY CHAVEZ MD Order Date: Primary Care Physician Address: [address] [place] [address] [phone] Note: SUSY CHAVEZ MD Order Date: Primary Care Physician Address: [address] [place] [id number] [id number] Note: Additional Instructions/Education 1. Elevate the ankle as much as possible tonight. But this on 3 or 4 pillows while you're at home laying flat and this will help with the swelling and subsequent pain. See Dr. Valencia tomorrow at 11 AM in his office in [place]. Leave the splint on at all times until he directs you otherwise. Do not put any weight on the right leg. All discharge instructions reviewed with patient and/or family. Voiced understanding. Discharge Date 02/20/18 9:08pm Disposition 01 HOME, SELF-CARE Condition at Discharge Stable Instructions/Education Provided Ankl e Fracture (DC) Prescriptions See Medication Section Referrals EZE VALENCIA MD Address: [address] [place] [id number] SUSY CHAVEZ MD Order Date: Primary Care Physician Address: [address] [place] [id number] [phone] Note: SUSY CHAVEZ MD Order Date: Primary Care Physician Address: [address] [place] [address] [phone] Note: Additional Instructions/Education 1. Elevate the ankle as much as possible tonight. But this on 3 or 4 pillows while you're at home laying flat and this will help with the swelling and subsequent pain. See Dr. Valencia tomorrow at 11 AM in his office in [place]. Leave the splint on at all times until he directs you otherwise. Do not put any weight on the right leg. All discharge instructions reviewed with patient and/or family. Voiced understanding. Goals No Information Social History No Information Functional Status The data below is from unstructured sourcesNo functional status results.No functional status information available.No functional status information available. Mental Status No Information Encounters Encounter Normalized Encounter Encounter Diagnosis Care Provi vidal Organization Date Type 02-20-2018 Emergency department no information MARIE Smith APRN, BA [facility] no organization name - patient visit Work Phone: 02-20-2018 08-25-2013 Evaluation and no information no name no organ ization name - management of 08-29-2013 inpatient 04-28-2018 Patient encounter no information no name no or ganization name - 04-29-2018 02-20-2018 Patient encounter no information no name no or ganization name 11-26-2017 Patient encounter no information no name no or ganization name 04-10-2017 Patient encounter no information no name no or ganization name - 04-11-2017 NEGATED Patient encounter no information no name no or ganization name 01-14-2016 10-05-2015 Patient encounter no information no name no or ganization name 09-24-2015 Patient encounter no information no name no or ganization name 09-03-2015 Patient encounter no information no name no or ganization name 04-19-2014 Patient encounter no information no name no or ganization name 11-25-2013 Patient encounter no information no name no or ganization name - 12-08-2013 08-12-2013 Patient encounter no information no name no or ganization name 08-07-2013 Patient encounter no information no name no or ganization name 08-04-2013 Patient encounter no information no name no or ganization name 07-30-2013 Patient encounter no information no name no or ganization name - 08-10-2013 11-17-2019 Patient encounter no information SUSY CHAVEZ (no [facility] - procedure phone) [facility] (no 11-17-2019 phone) 11-04-2019 Patient encounter no information SUSY CHAVEZ (no [facility] of [facility] (no 11-04-2019 phone) 08-21-2019 Patient encounter no information MURTAZA SOW (no phon e) [facility] procedure of [facility] (no 08-21-2019 phone) 07-13-2019 Patient encounter no information no name no or ganization name - procedure 07-13-2019 04-30-2019 Patient encounter no information no name no or ganization name - procedure 04-30-2019 12-16-2018 Patient encounter no information no name no or ganization name - procedure 12-17-2018 10-20-2018 Patient encounter no information no name no or ganization name - procedure 10-21-2018 10-16-2018 Patient encounter no information no name no or ganization name - procedure 10-17-2018 06-03-2018 Patient encounter no information no name no or ganization name - procedure 06-04-2018 12-31-2017 Patient encounter no information no name no or ganization name - procedure 01-01-2018 11-21-2017 Patient encounter no information no name no or ganization name - procedure 11-22-2017 07-18-2017 Patient encounter no information no name no or ganization name - procedure 07-19-2017 07-12-2017 Patient encounter no information no name no or ganization name - procedure 07-13-2017 04-16-2017 Patient encounter no information no name no or ganization name procedure 01-17-2017 Patient encounter no information no name no or ganization name - procedure 01-18-2017 12-21-2016 Patient encounter no information no name no or ganization name - procedure 01-17-2017 12-05-2016 Patient encounter no information no name no or ganization name - procedure 12-06-2016 09-04-2016 Patient encounter no information no name no or ganization name - procedure 09-05-2016 08-12-2016 Patient encounter no information no name no or ganization name - procedure 08-12-2016 07-07-2016 Patient encounter no information no name no or ganization name - procedure 07-08-2016 NEGATED no information Pre-procedural no name no organ ization name laboratory examination no information Other specified no name no organizatio n name pre-operative examination no information Encounter for general no name no organ ization name adult medical examination without abnormal findings Medical Equipment No Information Payers Normalized Payer Value Medicare no information Medicare [id number] ([id number]) Advance Directives Directive Response Recor ded Date/Time Advance Directives No 11:30am Health Care Power of Community Relations Director No 08/25/13 12:00pm Organ Donor Yes 08/25/13 12:00pm Resuscitation Status Full Code 09/02/15 11:30am Directive Response Recor ded Date/Time Advance Directives No 7:04pm Health Care Power of Community Relations Director No 02/20/18 7:04pm Organ Donor Yes 02/20/18 7:04pm Resuscitation Status Full Code 02/20/18 7:04pm Discharge Instructions No hospital discharge instructions.No hospital discharge instruction information available. Chief Complaint and Reason for Visit Chief Complaint Lower Extremity Reason for Visit Bimalleolar fractur e of right ankle Additional Source Comments This clinical document has been generated using [employer] software that has been certified by the Office of the National Coordinator for Health Information Technology (ONC 15.99.04.3023.Diam.[id number]) and the National Committee for Lens Inspector (NCQA, as an eMeasure certified technology). FOR RECORDS PERTAINING TO PATIENTS WHO ARE OR HAVE BEEN ENROLLED IN A CHEMICAL D EPENDENCY/SUBSTANCE ABUSE PROGRAM, SOME INFORMATION MAY BE OMITTED. This clinica l summary was aggregated from multiple sources. Caution should be exercised in using it in the provision of clinical care. This summary normalizes information from multiple sources, and as a consequence, information in this document may ma terially change the coding, format and clinical context of patient data. In ellen tion, data may be omitted in some cases. CLINICAL DECISIONS SHOULD BE BASED ON T HE PRIMARY CLINICAL RECORDS. [employer] provides no warranty or guara ntee of the accuracy or completeness of information in this document.The followi ng information is based on time limited clinical information
--- OUTSIDE RECORDS SUMMARY | 2019-12-08 08:50 | XMS REPORT | Continuity of Care Document ---
Demographics Preferred Language Unknown Marital Status Unknown Zoroastrian Affiliation Unknown Race Unknown Ethnic Group Unknown Author Organization Unknown Address Unknown Phone Unavailable Allergies Active Description Code Type Severity Reaction Onset Reported/Identified Relationship to Patient Clinical Status Yes NO KNOWN DRUG ALLERGIES NO KNOWN DRUG ALLERG UNKNOWN Yes NO KNOWN DRUG ALLERGIES UNKNOWN NO KNOWN DRUG ALLERG Yes NO KNOWN DRUG ALLERGIES UNKNOWN UNKNOWN Yes No Known Drug Allergies [id number] Drug Allergy Unknown N/A 02/20/2018 Medications Medication Packaging Start Date St op Date Route Dosage Sig Heparin, FLUSH IV [...] THERAPY NEC 06/07/2014 ALLA CHAVEZ MD Ot 724 .2 09/02/2015 ALLA CHAVEZ MD, Ot Z53 .9 09/02/2015 JESSICA CHÁVEZ Ot T85.628A DISPLACEMENT OF INTERNAL PROSTH DEV/GRFT 09/02/2015 EJSSICA CHÁVEZ Ot Z98.84 BARIATRIC SURGERY STATUS 09/02/2015 JESSICA CHÁVEZ Ot Z98.89 OTHER SPECIFIED POSTPROCEDURAL STATES 09/05/2015 JESSICA CHÁVEZ Ot T85.628A 09/05/2015 JESSICA CHÁVEZ Ot Z98.84 09/05/2015 JESSICA CHÁVEZ Ot Z98.89 09/29/2015 ALLA CHAVEZ MD, Ot Z53 .9 09/29/2015 ALLA CHAVEZ MD, Ot Z53 .9 10/05/2015 LILA COFFMAN DO Ot 719.46 JOINT [...] LABORATORY EXAMINATION 10/05/2015 ALLA CHAVEZ MD Ot 724 .2 LUMBAGO 10/05/2015 ALLA CHAVEZ MD Ot Z53 .9 PROCEDURE AND TREATMENT NOT CARRIED OUT, 10/05/2015 ALLA CHAVEZ MD Ot Z53 .9 PROCEDURE AND TREATMENT NOT CARRIED OUT, 10/05/2015 KATHY BEAR ALLA Jones Ot Z53 .9 PROCEDURE AND TREATMENT NOT CARRIED OUT, 10/06/2015 MAGI BEAR, MURTAZA Odom Ot M79.661 PAIN IN RIGHT LOWER LEG 10/06/2015 MURTAZA SOW MD Ot M79.89 OTHER SPECIFIED SOFT TISSUE DISORDERS 10/10/2015 MURTAZA SOW MD Ot M79.661 PAIN IN RIGHT LOWER LEG 10/10/2015 MURTAZA SOW MD Ot M79.89 OTHER SPECIFIED SOFT TISSUE DISORDERS 10/11/2015 MURTAZA SOW MD Ot M79.661 PAIN IN RIGHT LOWER LEG 10/11/2015 MURTAZA SOW MD Ot M79.89 OTHER SPECIFIED SOFT TISSUE DISORDERS 10/25/2015 MURTAZA SOW MD, Ot M79.661 PAIN IN RIGHT LOWER LEG 10/25/2015 MURTAZA SOW MD Ot M79.89 OTHER SPECIFIED SOFT TISSUE DISORDERS 11/04/2015 MURTAZA SOW MD Ot M79.661 PAIN IN [...] Ot V43.65 KNEE JOINT REPLACEMENT STATUS 11/30/2015 AUGUSTUS BOYD LILA Dickerson Ot V72.63 PRE-PROCEDURAL LABORATORY EXAMINATION 11/30/2015 ALLA CHAVEZ MD Ot 724 .2 LUMBAGO 11/30/2015 ALLA CHAVEZ MD Ot Z53 .9 PROCEDURE AND TREATMENT NOT CARRIED OUT, 11/30/2015 ALLA CHAVEZ MD Ot Z53 .9 PROCEDURE AND TREATMENT NOT CARRIED OUT, 11/30/2015 ALLA CHAVEZ MD Ot Z53 .9 PROCEDURE AND TREATMENT NOT CARRIED OUT, 11/30/2015 MURTAZA SOW MD Ot M79.661 PAIN IN RIGHT LOWER LEG 11/30/2015 MURTAZA SOW MD Ot M79.89 OTHER SPECIFIED SOFT TISSUE DISORDERS 11/30/2015 MURTAZA SOW MD Ot M79.661 PAIN IN RIGHT LOWER LEG 11/30/2015 MURTAZA SOW MD Ot M79.89 OTHER SPECIFIED SOFT TISSUE DISORDERS 11/30/2015 LILA COFFMAN DO Ot 719.46 JOINT PAIN-L/LEG 11/30/2015 LILA COFFMAN DO Tuan Ot 791.9 ABN URINE FINDINGS NEC 11/30/2015 AUGUSTUS BOYD LILA Dickerson Ot V43.65 KNEE JOINT REPLACEMENT STATUS 11/30/2015 LILA COFFMAN DO Tuan Ot V72.63 PRE-PROCEDURAL LABORATORY EXAMINATION 11/30/2015 AUGUSTUS BOYD LILA Dickerson Ot V72.83 EXAM PRE-OPERATIVE NEC 11/30/2015 LILA COFFMAN DO Tuan Ot V74.8 SCREEN-BACTERIAL DIS NEC 11/30/2015 AUGUSTUS BOYD LILA Dickerson Ot 719.46 JOINT PAIN-L/LEG 11/30/2015 AUGUSTUS BOYD LILA Dickerson Ot V43.65 KNEE JOINT REPLACEMENT STATUS 11/30/2015 AUGUSTUS BOYD LILA Dickerson Ot 791.9 ABN URINE FINDINGS NEC 11/30/2015 AUGUSTUS BOYD LILA Dickerson Ot 996.77 OTH COMPLICATIONS DUE TO INTERNAL JOINT 11/30/2015 AUGUSTUS BOYD LILA Dickerson Ot V43.65 KNEE JOINT REPLACEMENT STATUS 11/30/2015 LILA COFFMAN DO Tuan Ot V72.63 PRE-PROCEDURAL LABORATORY EXAMINATION 11/30/2015 ALLA CHAVEZ MD Ot 724 .2 LUMBAGO 11/30/2015 ALLA CHAVEZ MD Ot Z53 .9 PROCEDURE AND TREATMENT NOT CARRIED OUT, 11/30/2015 ALLA CHAVEZ MD, Ot Z53 .9 PROCEDURE AND TREATMENT NOT CARRIED OUT, 11/30/2015 ALLA CHAVEZ MD, Ot Z53 .9 PROCEDURE AND TREATMENT NOT CARRIED OUT, 11/30/2015 MURTAZA SOW MD Ot M79.661 PAIN IN RIGHT LOWER LEG 11/30/2015 MURTAZA SOW MD Ot M79.89 OTHER SPECIFIED SOFT TISSUE DISORDERS 01/18/2016 ALLA CHAVEZ MD, Ot Z53 .9 PROCEDURE AND TREATMENT NOT CARRIED OUT, 02/01/2016 ALLA CHAVEZ MD, Ot Z53 .9 PROCEDURE AND TREATMENT NOT CARRIED OUT, 07/07/2016 A V58.81 ENC OUNTER FOR FITTING AND ADJUSTMENT OF VASCULAR CATHETER 07/07/2016 A Z45.2 ENCO UNTER FOR ADJUSTMENT AND MANAGEMENT OF VAD 08/12/2016 [...] DISORDERS, NOT ELSEWHERE CLASSIFIED 11/20/2016 NGOC PIERSON A V58.49 ENCOUNTER FOR OTHER SPECIFIED AFTERCARE FOLLOWING SURGERY 11/20/2016 NGOC PIERSON A Z48.89 ENCOUNTER FOR OTHER SPECIFIED SURGICAL AFTERCARE 04/16/2017 A V58.81 ENC OUNTER FOR FITTING AND ADJUSTMENT OF VASCULAR CATHETER 04/16/2017 A Z45.2 ENCO UNTER FOR ADJUSTMENT AND MANAGEMENT OF VAD 07/12/2017 W 300.00 ANX IETY STATE, UNSPECIFIED 07/12/2017 A 401.1 CORAL GN ESSENTIAL HYPERTENSION 07/12/2017 W F41.9 ANXI ETY DISORDER, UNSPECIFIED 07/12/2017 A I10 ESSENT IAL (PRIMARY) HYPERTENSION 07/18/2017 W 611.72 LUM P OR MASS IN BREAST 07/18/2017 W N63 UNSPEC IFIED LUMP IN BREAST 07/26/2017 Kathy, Alla W 611.72 LUMP OR MASS IN BREAST 07/26/2017 Kathy, Alla W N63 UNSPECIFIED LUMP IN BREAST 07/26/2017 Kathy, Alla W 611.72 LUMP OR MASS IN BREAST 07/26/2017 Kathy, Alla W N63 UNSPECIFIED LUMP IN BREAST 11/21/2017 A 296.90 UNS PECIFIED EPISODIC MOOD DISORDER 11/21/2017 A F39 UNSPEC IFIED MOOD [AFFECTIVE] DISORDER 02/20/2018 LILA COFFMAN DO Ot 719.46 JOINT PAIN-L/LEG 02/20/2018 LILA COFFMAN DO Ot 791.9 ABN URINE FINDINGS NEC 02/20/2018 LILA COFFMAN DO Ot V43.65 KNEE JOINT REPLACEMENT STATUS 02/20/2018 LILA COFFMAN DO Ot V72.63 PRE-PROCEDURAL LABORATORY EXAMINATION 02/20/2018 LILA COFFMAN DO Ot V72.83 EXAM PRE-OPERATIVE NEC 02/20/2018 LILA COFFMAN DO Ot V74.8 SCREEN-BACTERIAL DIS NEC 02/20/2018 LILA COFFMAN DO Ot 719.46 JOINT PAIN-L/LEG 02/20/2018 LILA COFFMAN DO Ot V43.65 KNEE JOINT REPLACEMENT STATUS 02/20/2018 LILA COFFMAN DO Ot 791.9 ABN URINE FINDINGS NEC 02/20/2018 LILA COFFMAN DO Ot 996.77 OTH COMPLICATIONS DUE TO INTERNAL JOINT 02/20/2018 LILA COFFMAN DO Ot V43.65 KNEE JOINT REPLACEMENT STATUS 02/20/2018 LILA COFFMAN DO Ot V72.63 PRE-PROCEDURAL LABORATORY EXAMINATION 02/20/2018 ALLA CHAVEZ MD Ot 724 .2 LUMBAGO 02/20/2018 ALLA CHAVEZ MD Ot Z53 .9 PROCEDURE AND TREATMENT NOT CARRIED OUT, 02/20/2018 ALLA CHAVEZ MD Ot Z53 .9 PROCEDURE AND TREATMENT NOT CARRIED OUT, 02/20/2018 KATHY BEAR, ALLA Jones Ot Z53 .9 PROCEDURE AND TREATMENT NOT CARRIED OUT, 02/20/2018 MURTAZA SOW MD Ot M79.661 PAIN IN RIGHT LOWER LEG 02/20/2018 MURTAZA SOW MD Ot M79.89 OTHER SPECIFIED SOFT TISSUE DISORDERS 02/20/2018 ALLA CHAVEZ MD Ot Z53 .9 PROCEDURE AND TREATMENT NOT CARRIED OUT, 02/20/2018 MARIE KAISER APRN Ot G40.909 EPILEPSY, UNSP, NOT INTRACTABLE, WITHOUT 02/20/2018 MARIE KAISER APRN Ot I10 ESSENTIAL (PRIMARY) HYPERTENSION 02/20/2018 MARIE KAISER APRN Ot M16.11 UNILATERAL PRIMARY OSTEOARTHRITIS, RIGHT 02/20/2018 MARIE KAISER APRN Ot M16.12 UNILATERAL PRIMARY OSTEOARTHRITIS, LEFT 02/20/2018 MARIE KAISER APRN Ot M25.571 PAIN IN RIGHT ANKLE AND JOINTS OF RIGHT 02/20/2018 MARIE KAISER APRN Ot S09.90XA UNSPECIFIED INJURY OF HEAD, INITIAL ENCO 02/20/2018 MARIE KAISER APRN Ot S82.841A DISPLACED BIMALLEOLAR FRACTURE OF RIGHT 02/20/2018 MARIE KAISER APRN Ot W01.198A FALL SAME LEV FROM SLIP/TRIP W STRIKE AG 02/20/2018 MARIE KAISER APRN Ot Z79.02 SKILLED NURSING (CURRENT) USE OF ANTITHROMBOTI 02/20/2018 MARIE KAISER APRN Ot Z79.82 BASKET PATCHER (CURRENT) USE OF ASPIRIN 02/20/2018 MARIE KAISER APRN Ot Z82.49 FAMILY HX OF ISCHEM HEART DIS AND OTH DI 02/20/2018 MARIE KAISER APRN Ot Z96.651 PRESENCE OF RIGHT ARTIFICIAL KNEE JOINT 02/20/2018 MARIE KAISER APRN Ot Z98 .1 ARTHRODESIS STATUS 02/20/2018 MARIE KAISER APRN Ot Z98.84 BARIATRIC SURGERY STATUS 02/24/2018 MARIE KAISER APRN Ot G40.909 EPILEPSY, UNSP, NOT INTRACTABLE, WITHOUT 02/24/2018 MARIE KAISER APRN Ot I10 ESSENTIAL (PRIMARY) HYPERTENSION 02/24/2018 MARIE KAISER APRN Ot M16.11 UNILATERAL PRIMARY OSTEOARTHRITIS, RIGHT 02/24/2018 MARIE KAISER APRN Ot M16.12 UNILATERAL PRIMARY OSTEOARTHRITIS, LEFT 02/24/2018 MARIE KAISER APRN Ot M25.571 PAIN IN RIGHT ANKLE AND JOINTS OF RIGHT 02/24/2018 MARIE KAISER APRN Ot S09.90XA UNSPECIFIED INJURY OF HEAD, INITIAL ENCO 02/24/2018 MARIE KAISER APRN Ot S82.841A DISPLACED BIMALLEOLAR FRACTURE OF RIGHT 02/24/2018 MARIE KAISER APRN Ot W01.198A FALL SAME LEV FROM SLIP/TRIP W STRIKE AG 02/24/2018 MARIE KAISER APRN Ot Z79.02 SKILLED NURSING (CURRENT) USE OF ANTITHROMBOTI 02/24/2018 MARIE KAISER APRN Ot Z79.82 SKILLED NURSING (CURRENT) USE OF ASPIRIN 02/24/2018 MARIE KAISER APRN Ot Z82.49 FAMILY HX OF ISCHEM HEART DIS AND OTH DI 02/24/2018 MARIE KAISER APRN Ot Z96.651 PRESENCE OF RIGHT ARTIFICIAL KNEE JOINT 02/24/2018 MARIE KAISER APRN Ot Z98 .1 ARTHRODESIS STATUS 02/24/2018 MARIE KAISER APRN Ot Z98.84 BARIATRIC SURGERY STATUS 04/28/2018 W 272.4 OTHE R AND UNSPECIFIED HYPERLIPIDEMIA 04/28/2018 W 401.0 SALVADOR GNANT ESSENTIAL HYPERTENSION 04/28/2018 W E78.5 HYPE RLIPIDEMIA, UNSPECIFIED 04/28/2018 W I10 ESSENT IAL (PRIMARY) HYPERTENSION 10/16/2018 W V70.0 ROUT INE GENERAL MEDICAL EXAMINATION AT A HEALTH CARE FACILITY 10/16/2018 W Z00.00 ENC OUNTER FOR GENERAL ADULT MEDICAL EXAMINATION WITHOUT ABNORMAL FINDINGS 12/02/2019 ALLA CHAVEZ MD Ot Z53 .9 PROCEDURE AND TREATMENT NOT CARRIED OUT, 12/02/2019 ALLA CHAVEZ MD Ot Z53 .9 PROCEDURE AND TREATMENT NOT CARRIED OUT, 12/02/2019 ALLA CHAVEZ MD Ot Z53 .9 PROCEDURE AND TREATMENT NOT CARRIED OUT, 12/02/2019 MURTAZA SOW MD, Ot M79.661 PAIN IN RIGHT LOWER LEG 12/02/2019 MURTAZA SOW MD, Ot M79.89 OTHER SPECIFIED SOFT TISSUE DISORDERS 12/02/2019 KATHY BEAR, ALLA Jones Ot Z53 .9 PROCEDURE AND TREATMENT NOT CARRIED OUT, Procedures Code Description Performed By Per formed On 81.55 REVI OLEGARIO OF KNEE REPLACEMENT, NOT OTHERW 08/25/2013 84.57 KASIE REID OF (CEMENT) SPACER 08/25/2013 Results Test Result Range Vancomycin trough [...] 12/05/16 17:57 PRELIM CULTURE RESULTS 10,000-20,000 Gram Ne gative - KILEY / ID to Follow MEDIA PLATED Setup at 18:09 on 12/05/2016 CULTURE SOURCE void Sensi - 12/05/16 17:57 FINAL CULTURE RESULTS Proteus mirabilis (Isolate 1 ) Ampicillin/Sulbactam <=8/4 Ampicillin <=8 Amoxicillin/K Clavulanate <=8/4 [...] 17:11 PRELIM CULTURE RESULTS 20,000 gram neg bacil [id number] / ID to follow MEDIA PLATED Setup at 17:16 on 01/17/2017 CULTURE SOURCE clinic collection Sensi - 01/17/17 17:11 FINAL CULTURE RESULTS Proteus mirabilis (Isolate 1 ) Ampicillin/Sulbactam <=8/4 Ampicillin <=8 Amoxicillin/K Clavulanate <=8/4 [...] Methodology: Comment Thyroid Stimulating Hormone - 07/26/17 1 0:41 TSH 1.25 mIU/mL 0.32-5.00 Thyroid Stimulating Hormone - 10/20/18 0 9:48 TSH 1.34 mIU/mL 0.32-5.00 Urine Culture - 10/20/18 09:48 PRELIM CULTURE RESULTS No Growth 24 hours FINAL CULTURE RESULTS No Growth 48 hours MEDIA PLATED Setup at 0950 on 10/20/2018 CULTURE SOURCE void Iron - 11/17/19 09:37 Iron 36 ug/dL 70-200 Lamotrigine (Lamictal), Serum - 11/17/19 09:37 LAMOTRIGINE, SERUM 7.1 UG/ML 2.0-20.0 Encounters ACCT No. Visit Date/Time Discharge Status Pt. Type Provider Facility Loc./Unit Complaint [id number] 07/23/2017 16:25:00 Document Registration [id number] 11/26/2017 14:30:00 11/26/2017 23:59:5 9 CLS Outpatient HENRY [facility]LA[facility]ARE[facility] [id number] 02/20/2018 18:46:00 018 21:08:00 DIS Emergency MARIE KAISER APRN [facility] ER R ANKLE PAIN,TRIPPED OV ER WALKER [id number] 01/14/2016 19:30:00 016 23:59:59 CLS Outpatient ALLA CHAVEZ MD Via [facility] [id number] 01/11/2016 19:57:00 016 19:57:00 CAN Preadmit GILMA VINCENT DO Via [facility] [id number] 10/05/2015 10:24:00 23:59:59 CLS Outpatient MAGI BEAR, MURTAZA Hernadez ia [facility] RAD RT LEG PAIN AND SWELLIN G [id number] 09/24/2015 15:43:00 23:59:59 CLS Outpatient ALLA CHAVEZ MD [facility] [id number] 09/03/2015 18:23:00 23:59:59 CLS Outpatient ALLA CHAVEZ MD [facility] [id number] 09/02/2015 11:14:00 17:35:00 DIS Emergency JESSICA CHÁVEZ [facility] ER GROSHONG CATHETER PROB LEMS [id number] 08/28/2015 07:34:00 23:59:59 CLS Outpatient ALLA CHAVEZ MD [facility] [id number] 04/19/2014 16:48:00 23:59:59 CLS Outpatient ALLA CHAVEZ MD [facility] RAD RT LEG AND LOW BACK SARAH N [id number] 11/25/2013 10:15:00 11:51:00 DIS Outpatient HIRENTERLILA BERMUDEZ DO Via [facility] REHAB S/P R TOTAL KNE E REVISION [id number] 08/25/2013 06:05:00 12:00:00 DIS Inpatient HIRENTERLILA BERMUDEZ DO Via [facility] SURGICAL RIGHT KNEE PAINFUL PRO THESIS [id number] 08/12/2013 12:56:00 23:59:59 CLS Outpatient HIRENTERLILA BERMUDEZ DO Via [facility] LAB RE DRAW PRE OP UA,PAINFUL R KNEE PROTHEISI [id number] 07/23/2013 08:56:00 14:29:00 DIS Outpatient HIRENTERLILA BERMUDEZ DO Via [facility] REHAB R KNEE PAIN/JAMES D WEAKNESS AND INSTABILITY [id number] 08/07/2013 08:23:00 014 23:59:59 CLS Outpatient SATTER LILA BOYD [facility] PREOP RIGHT KNEE PAIN FUL PROTHESIS [id number] 08/04/2013 10:09:00 014 23:59:59 CLS Outpatient LILA COFFMAN DO Via [facility] LAB RT KNEE PAIN [id number] 12/08/2019 10:00:00 P EN Preadmit CHERELLE BEAR FACC, BRIDGETT DHILLON CCDS Via [facility] CATH ANGINA [id number] 11/30/2015 07:36:00 Document Registration [id number] 01/21/2006 14:35:00 Document Registration [id number] 11/17/2019 09:33:00 11/17/2019 23:59 :00 DIS Outpatient Alla Chavez [id number] 11/04/2019 14:29:00 11/04/2019 23:59 :00 DIS Outpatient Alla Chavez [id number] 08/21/2019 10:53:00 08/21/2019 23:59 :00 DIS Outpatient MURTAZA SOW [id number] 08/21/2019 10:19:00 08/21/2019 23:59 :00 DIS Outpatient MURTAZA SOW [id number] 07/13/2019 15:33:00 07/13/2019 23:59 :00 DIS Outpatient Alla Chavez [id number] 07/13/2019 14:56:00 07/13/2019 23:59 :00 DIS Outpatient Alla Chavez [id number] 04/30/2019 13:39:00 04/30/2019 23:59: 00 DIS Outpatient Alla Chavez [id number] 12/16/2018 10:12:00 12/16/2018 23:59: 00 DIS Outpatient VEENA GORMAN [id number] 10/20/2018 09:42:00 10/20/2018 23:59: 00 DIS Outpatient Alla Chavez [id number] 06/03/2018 09:35:00 06/03/2018 23:59: 00 DIS Outpatient VEENA GORMAN [id number] 04/28/2018 12:19:00 04/28/2018 23:59: 00 DIS Outpatient Alla Chavez [id number] 12/31/2017 14:35:00 12/31/2017 23:59: 00 DIS Outpatient VEENA GORMAN [id number] 07/26/2017 09:31:00 07/26/2017 23:59: 00 DIS Outpatient Alla Chavez [id number] 07/18/2017 17:51:00 07/18/2017 23:59: 00 DIS Outpatient Alla Chavez [id number] 04/10/2017 10:32:00 04/10/2017 23:59: 00 DIS Outpatient Keon Villegas [id number] 01/17/2017 17:09:00 01/17/2017 23:59: 00 DIS Outpatient Alla Chavez [id number] 12/21/2016 00:00:00 01/17/2017 12:00: 00 DIS Outpatient NGOC PIERSON [id number] 12/21/2016 09:15:00 12/21/2016 09:15: 00 CAN Outpatient NGOC PIERSON [id number] 12/05/2016 16:05:00 12/05/2016 23:59: 00 DIS Outpatient Alla Chavez [id number] 09/04/2016 08:17:00 09/04/2016 23:59: 00 DIS Outpatient Alla Chavez [id number] 08/12/2016 14:04:00 08/12/2016 14:17: 00 DIS Outpatient Alla Chavez [id number] 10/16/2018 09:28:00 Document Registration [id number] 04/28/2018 11:43:00 Document Registration [id number] 11/21/2017 14:41:00 Document Registration [id number] 07/18/2017 10:01:00 Document Registration [id number] 07/12/2017 14:44:00 Document Registration [id number] 04/10/2017 11:39:00 Document Registration [id number] 08/12/2016 14:27:07 Document Registration [id number] 07/07/2016 16:04:00 Document Registration [id number] 12/05/2016 16:05:00 Document Registration [id number] 04/10/2017 10:32:00 Document Registration
[2019-12-08] MEDS ORDERED: ASPI-999 PO (09:14)
[2019-12-08] MEDS ORDERED: NAPR-1071 PO (09:14)
[2019-12-08] MEDS ORDERED: FURO40TA4 PO (09:14)
[2019-12-08] MEDS ORDERED: NITR0.4T42 SL (09:14)
[2019-12-08] MEDS ORDERED: TIZA4CAP8 PO (09:14)
[2019-12-08] MEDS ORDERED: DOXY100C2 PO (09:14)
[2019-12-08] MEDS ORDERED: PROP120C3 PO (09:14)
[2019-12-08] MEDS ORDERED: FLUO40CA12 PO (09:14)
[2019-12-08 09:22] LABS: MEAN PLATELET VOLUME 8.6 FL (7.4-10.4); RED CELL DISTRIBUTION WIDTH 13.9 % (10.0-14.5); WHITE BLOOD COUNT 7.2 10^3/uL (4.3-11.0)
[2019-12-08 09:42] LABS: PROTHROMBIN TIME PATIENT 13.1 SEC (12.2-14.7)
[2019-12-08 09:49] LABS: ALANINE AMINOTRANSFERASE 17 U/L (0-55); ALBUMIN 3.3 GM/DL (3.2-4.5); ALKALINE PHOSPHATASE 137 U/L (40-136); BILIRUBIN,TOTAL 0.3 MG/DL (0.1-1.0); BUN/CREATININE RATIO 25; CARBON DIOXIDE 26 MMOL/L (21-32); CHLORIDE 106 MMOL/L (98-107); CREATININE SERUM 0.79 MG/DL (0.60-1.30); GFR ESTIMATED > 60; GLUCOSE 84 MG/DL (70-105); POTASSIUM 4.2 MMOL/L (3.6-5.0); SODIUM 140 MMOL/L (135-145); TOTAL PROTEIN 6.7 GM/DL (6.4-8.2)
[2019-12-08 09:50] LABS: CHOLESTEROL 128 MG/DL (< 200); HDL CHOLESTEROL 55 MG/DL (40-60); TRIGLYCERIDES 98 MG/DL (<150); VLDL CHOLESTEROL 20 MG/DL (5-40)
[2019-12-08] MEDS ORDERED: MIDAZOLAM 5 MG/5 ML (VERSED) VIAL ONE (10:45)
[2019-12-08] MEDS ORDERED: fentaNYL INJECTION 100 MCG/2 ML AMP ONE (10:46)
[2019-12-08] MEDS ORDERED: MIDAZOLAM 2 MG/2 ML (VERSED) VIAL ONE (11:15)
--- NOTE | 2019-12-08 11:16 | Cardiac Procedure Note-CS/ASA ---
Pre-Procedure Note Pre-Op Procedure Note H&P Reviewed The H&P was reviewed, patient examined and no changes noted. Date H&P Reviewed: Dec 08, 2019 Time H&P Reviewed: 11:15 Conscious Sedation Pre-Proced Time 11:15 ASA Score 3 For ASA 3 and 4: Consider anesthesia and medical clearance. Also, for patients with a history of failed moderate sedation consider anesthesia. Airway Lungs Heart ASA score ASA 1: a normal healthy patient ASA 2: a patient with a mild systemic disease (mid diabetes, controlled hypertension, obesity ASA 3: a patient with a severe systemic disease that limits activity (angina, COPD, prior Myocardial infarction) ASA 4: a patient with an incapacitating disease that is a constant threat to life (CHF, renal failure) ASA 5: a moribund patient not expected to survive 24 hrs. (ruptured aneurysm) ASA 6: a declared brain- patient whose organs are being harvested. For emergent operations, add the letter E after the classification Mallampati Classification Grade 2 Sedation Plan Analgesia, Amnesia, Plan communicated to team members, Discussed options with patient/fam, Discussed risks with patient/fam The patient is an appropriate candidate to undergo the planned procedure, sedation, and anesthesia. The patient immediately re-assessed prior to indication. BRIDGETT VILLARREAL MD FACP FAC CCDS Dec 08, 2019 11:15
[2019-12-08] MEDS ORDERED: PATIENT MAY USE OWN MEDS, ALL PO SCH (11:45)
--- NOTE | 2019-12-08 11:45 | Discharge Inst-Cardiology ---
Discharge Inst-Cardiac Discharge Medications Continued Medications: Alprazolam (Xanax) 0.25 Mg Tablet 0.25 MG PO BID PRN for ANXIETY NEEDED FOR ANXIETY Amlodipine Besylate (Amlodipine Besylate) 5 Mg Tablet 5 MG PO DAILY Doxycycline Hyclate (Doxycycline Hyclate) 100 Mg Capsule 100 MG PO DAILY, CAP Ferrous Sulfate (Iron) 325 ( Tablet 325 MG PO DAILY Fluoxetine HCl (Prozac) 40 Mg Capsule 40 MG PO DAILY, CAP Furosemide (Furosemide) 40 Mg Tablet 40 MG PO DAILY, TAB Lamotrigine (Lamotrigine) 200 Mg Tablet 200 MG PO TID Multivitamin (Multi Vitamin Daily) 1 Each Tablet 1 TAB PO DAILY Potassium Gluconate (Potassium) 99 Mg Tablet 99 MG PO DAILY Propranolol HCl (Propranolol HCl ER) 120 Mg Cap.sa.24h 120 MG PO DAILY, CAP Tizanidine HCl (Tizanidine HCl) 4 Mg Capsule 4 MG PO DAILY, CAP Discontinued Medications: Aspirin (Aspirin) 81 Mg Tab.chew 81 MG PO DAILY, TAB Isosorbide Mononitrate (Isosorbide Mononitrate Er) 60 Mg Tab.er.24h 60 MG PO DAILY Naproxen (Naprosyn) 500 Mg Tablet 500 MG PO BID, TAB Nitroglycerin (Nitroglycerin) 0.4 Mg Tab.subl 0.4 MG SL PRN for CHEST PAIN (ANGINA), #24 BRIDGETT BLAKE MD FACP FAC CCDS Dec 08, 2019 11:45
--- NOTE | 2019-12-08 11:46 | Discharge Inst-Post CATH ---
Discharge Inst-CATH/EP Post Cardiac Cath/EP D/C Inst Follow Up/Plan F/u with Dr Monroe in 2 weeks ACTIVITY * Go Home directly and rest. * Limit activity of the leg (or wrist if it was used) for 7 days including aerobics, swimming, jogging, bicycling, etc. * Restrict stair-climbing for 7 days if possible, if not, climb up with your n on-cath leg, then bring together on the same step. * Avoid lifting, pushing, pulling or excessive movement of the affected ex tremity for 7 days. * Customary sexual activity may be resumed after 2 days-use caution not to use a position that strains or causes pain to the affected extremity. * No driving for 24 hours. * NO SMOKING. * Avoid straining for bowel movements for 7 days. * Gentle walking on level ground is allowed. * Returning to work will depend on the type of procedure and the results. Your doctor will discuss this with you. CALL YOUR DOCTOR FOR ANY OF THE FOLLOWING: *If bleeding from the puncture site occurs- Apply gentle pressure to site with clean cloth and call your doctor or EMS. * If a knot or lump forms under the skin, increases in size, or causes pain. * If bruising appears to be worsening or moving further down your leg instead of disappearing. * Temperature above 101 F. CARE OF YOUR GROIN INCISION; * Bruising or purple discoloration of the skin near the puncture site is common. * You may shower only, no bathtub bathing for 5 days. Be careful to avoid slipping as your leg may feel stiff. * If a closure device was used on your femoral artery, please see the attached guide regarding care of the device and your leg. * Leave dressing on FOR 24 hours. CARE OF YOUR WRIST INCISION; * Bruising or purple discoloration of the skin near the puncture site is common. * You may shower. * DO NOT submerge wrist. * Leave dressing on FOR 24 hours. BRIDGETT MONROE MD FACP FAC CCDS Dec 08, 2019 11:46
--- NOTE | 2019-12-08 12:18 | CARDIAC CATHETERIZATION ---
DATE OF SERVICE: 12/08/2019 CARDIAC CATHETERIZATION REPORT The patient is a 64-year-old lady who has had the recent onset of symptoms of typical angina. Cardiac catheterization was carried out today after having obtained an informed consent. DESCRIPTION OF PROCEDURE: She was brought to the cardiac catheterization laboratory in a fasting state. Right groin was prepared and draped in the usual sterile fashion. Lidocaine 1% was used for local anesthesia. Modified Seldinger technique used to advance a 5-Swedish sheath in right femoral artery, 5-Swedish JL4 catheter for left coronary angiography, 5-Swedish JR4 catheter for right coronary angiography, 5-Swedish pigtail catheter was used for left heart catheterization and left ventricular angiography. Pigtail was removed. Angiography of the right femoral artery was carried out through the sheath. Mynx was used to achieve hemostasis. The patient tolerated the procedure well. HEMODYNAMICS: Left ventricular end-diastolic pressure following coronary angiography was 19 mmHg. There was no significant pressure gradient on pullback across the aortic valve. Ascending aortic pressure was 107/60 with a mean of 82 mmHg. CORONARY ANGIOGRAPHY: Left main coronary artery, left anterior descending artery, left circumflex artery, right coronary artery do not exhibit any angiographically significant coronary artery disease. Right coronary artery is dominant. LEFT VENTRICULAR ANGIOGRAPHY: Left ventricular angiography was carried out in the right anterior oblique projection. Global left ventricular systolic function normal. Left ventricular ejection fraction approximately 60%. CONCLUSIONS: 1. No angiographically significant coronary artery disease. 2. Normal global left ventricular systolic function with ejection fraction approximately 60%. 3. Mild to moderate elevation of left ventricular end-diastolic pressure. DISCUSSION AND RECOMMENDATIONS: Based on results of the study, it appears appropriate to continue a conservative approach. Risk factor modification is then advised. Outpatient followup is advised. Job ID: [id number] DocumentID: [id number] Dictated Date: 12/08/2019 11:49:25 Employee Communications Intern Date: 12/08/2019 12:17:50 Dictated By: BRIDGETT VILLARREAL MD, MA, FACP, FACC,
== END 2019-12-08 15:00 | disposition home or self-care (01) ==
LOC: CATH 08:16 → SDC 11:55 → CATH 15:00
PROVIDERS: ATTEND Internal Medicine Cardiovascular Disease
DX: R07.9 Chest pain, unspecified (principal); I10 Essential (primary) hypertension; R42 Dizziness and giddiness; F41.9 Anxiety disorder, unspecified; G40.909 Epilepsy, unspecified, not intractable, without status epilepticus; M79.89 Other specified soft tissue disorders; Z82.49 Family history of ischemic heart disease and other diseases of the circulatory system; Z79.82 Long term (current) use of aspirin; Z86.73 Personal history of transient ischemic attack (TIA), and cerebral infarction without residual deficits; Z96.652 Presence of left artificial knee joint; Z79.899 Other long term (current) drug therapy
CPT/HCPCS: 80053; 80061; 85027; 85610; 85730; 87081; 93458; C1760; C1894; 36415

== ENCOUNTER 2021-05-14 12:33 | Day surgery (SDC) | payer MEDICARE, MEDICAID ==
[~2021-05-14] VITALS: Ht 162 cm; Wt 90.0 kg
[2021-05-14] VITALS (8 sets, daily range): BP systolic 113–129; BP diastolic 63–75
[~2021-05-14 12:33] MED LIST changes: +ASPI-999 PO; +DOXY100C5 PO; +FLUO40CA12 PO; +FURO40TA4 PO; +NAPR-1071 PO; +NITR0.4T42 SL; +PROP120C3 PO; -SULF1TAB35 PO; +SULF1TAB38 PO; +TIZA4CAP8 PO
--- NOTE | 2021-05-14 12:45 | ED Lower Extremity ---
General Chief Complaint: Lower Extremity Stated Complaint: R KNEE INJ Source: patient Exam Limitations: no limitations History of Present Illness Date Seen by Provider: May 14, 2021 Time Seen by Provider: 12:42 Initial Comments Patient is a 66-year-old female who presents ED with right knee pain. Patient fell hitting her right knee. Patient states 30 minutes ago she was in the kitchen attempting to move a broom when she fell landing on her right knee causing a open wound. Patient had a total knee replacement performed by Dr. Rodriguez at [facility] 3 weeks ago. She had sutures removed last week. She states she was not able to stand or bear weight. She has been using a walker. She denies any distal numbness and tingling. 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 Patient is not on blood thinners. She denies in her head, loss consciousness, nausea, vomiting, diarrhea, back pain, hip pain. Allergies and Home Medications Allergies Coded Allergies: gabapentin (Verified Allergy, Unknown, 05/14/21) Patient Home Medication List Home Medication List Reviewed: Yes Alprazolam (Xanax) 0.25 Mg Tablet, 0.25 MG PO BID PRN for ANXIETY, (Reported) Entered as Reported by: MARTELL ROE on 08/25/13 1240 Amlodipine Besylate (Amlodipine Besylate) 5 Mg Tablet, 5 MG PO DAILY, (Reported) Entered as Reported by: HARRIS RAMIREZ on 08/07/13938 Doxycycline Hyclate (Doxycycline Hyclate) 100 Mg Capsule, 100 MG PO DAILY, (Reported) Entered as Reported by: CAR CAT on 12/08/19913 Ferrous Sulfate (Iron) 325 ( Tablet, 325 MG PO DAILY, (Reported) Entered as Reported by: HARRIS RAMIREZ on 08/07/13938 Fluoxetine HCl (Prozac) 40 Mg Capsule, 40 MG PO DAILY, (Reported) Entered as Reported by: CAR CAT on 12/08/19913 Furosemide (Furosemide) 40 Mg Tablet, 40 MG PO DAILY, (Reported) Entered as Reported by: CAR CAT on 12/08/19913 Lamotrigine (Lamotrigine) 200 Mg Tablet, 200 MG PO TID, (Reported) Entered as Reported by: HARRIS RAMIREZ on 08/07/13938 Multivitamin (Multi Vitamin Daily) 1 Each Tablet, 1 TAB PO DAILY, (Reported) Entered as Reported by: MARTELL ROE on 08/25/13 1241 Potassium Gluconate (Potassium) 99 Mg Tablet, 99 MG PO DAILY, (Reported) Entered as Reported by: HARRIS RAMIREZ on 08/07/13 0939 Propranolol HCl (Propranolol HCl ER) 120 Mg Cap.sa.24h, 120 MG PO DAILY, (Reported) Entered as Reported by: CAR CAT on 12/08/19 0914 Tizanidine HCl (Tizanidine HCl) 4 Mg Capsule, 4 MG PO DAILY, (Reported) Entered as Reported by: CAR CAT on 12/08/19 0914 Review of Systems Constitutional: No chills, No diaphoresis EENTM: No ear pain, No eye pain Respiratory: No cough, No short of breath Gastrointestinal: No abdominal pain, No constipation, No diarrhea Musculoskeletal: No back pain; joint pain, joint swelling Skin: No change in color, No change in hair/nails; other (Laceration) Psychiatric/Neurological: Denies Headache, Denies Numbness Past Vmdjvny-Aoistx-Hnzgxv Hx Immunizations Up To Date Tetanus Booster (TDap): Unknown Past Medical History Surgeries: Yes (GASTRIC BYPASS, BLADDER TIE UP, internal groshong insertion) Orthopedic Respiratory: No Cardiac: Yes Hypertension Neurological: Yes (LAST SEIZURE 15 YEARS AGO) Reproductive Disorders: No Genitourinary: No Gastrointestinal: No Musculoskeletal: Yes Arthritis, Back Injury Endocrine: No HEENT: No Cancer: No Psychosocial: No Integumentary: No Blood Disorders: No Family Medical History Family history: Arthritis 03 MOTHER Family history: Cardiovascular disease 03 FATHER 09 BROTHER Family history: Diabetes mellitus 03 FATHER Family history: Hypertension 03 MOTHER Family history: Thyroid disorder 03 MOTHER 09 SISTER Myocardial infarction 03 FATHER Stroke 03 FATHER No Family History of: Abdominal aortic aneurysm Alcoholism Cancer Family history: Alzheimer's disease Family history: Asthma Family history: Breast disease Family history: Gastrointestinal disease Hereditary disease History of - anemia History of - respiratory disease Seizure disorder No Pertinent Family Hx Physical Exam Vital Signs Vital Signs - First Documented Capillary Refill : Height, Weight, BMI Height: 5'3.00" Weight: 270lbs. 0.0oz. [id number]; 25.70 BMI Method:Stated General Appearance: WD/WN, no apparent distress HEENT: PERRL/EOMI, normal ENT inspection, TMs normal Neck: non-tender, full range of motion, supple Cardiovascular: regular rate, rhythm, no edema, no gallop Respiratory: chest non-tender, lungs clear, normal breath sounds Gastrointestinal: normal bowel sounds, non tender, soft Back: normal inspection, no CVA tenderness Knees: right knee bone tenderness, right knee other (Open right knee superficial involving adipose tissue. Fascia appears to be intact no joint exposure) Skin: normal color, warm/dry, other (Open surgical wound to right knee.) Progress/Results/Core Measures Results/Orders Lab Results Laboratory Tests Test 05/14/21 13:05 Range/Units White Blood Count 8.1 4.3-11.0 10^3/uL Red Blood Count 3.96 3.80-5.11 10^6/uL Hemoglobin 9.8 L 11.5-16.0 g/dL Hematocrit 32 L 35-52 % Mean Corpuscular Volume 80 80-99 fL Mean Corpuscular Hemoglobin 25 25-34 pg Mean Corpuscular Hemoglobin Concent 31 L 32-36 g/dL Red Cell Distribution Width 18.2 H 10.0-14.5 % Platelet Count 596 H 130-400 10^3/uL Mean Platelet Volume 8.6 L 9.0-12.2 fL Immature Granulocyte % (Auto) 1 % Neutrophils (%) (Auto) 66 42-75 % Lymphocytes (%) (Auto) 23 12-44 % Monocytes (%) (Auto) 8 0-12 % Eosinophils (%) (Auto) 2 0-10 % Basophils (%) (Auto) 1 0-10 % Neutrophils # (Auto) 5.4 1.8-7.8 10^3/uL Lymphocytes # (Auto) 1.8 1.0-4.0 10^3/uL Monocytes # (Auto) 0.6 0.0-1.0 10^3/uL Eosinophils # (Auto) 0.1 0.0-0.3 10^3/uL Basophils # (Auto) 0.1 0.0-0.1 10^3/uL Immature Granulocyte # (Auto) 0.1 0.0-0.1 10^3/uL Sodium Level 135 135-145 MMOL/L Potassium Level 4.0 3.6-5.0 MMOL/L Chloride Level 99 98-107 MMOL/L Carbon Dioxide Level 25 21-32 MMOL/L Anion Gap 11 5-14 MMOL/L Blood Urea Nitrogen 22 H 7-18 MG/DL Creatinine 1.41 H 0.60-1.30 MG/DL Estimat Glomerular Filtration Rate 37 BUN/Creatinine Ratio 16 Glucose Level 103 70-105 MG/DL Calcium Level 9.1 8.5-10.1 MG/DL Corrected Calcium 9.7 8.5-10.1 MG/DL Total Bilirubin 0.2 0.1-1.0 MG/DL Aspartate Amino Transf (AST/SGOT) 29 5-34 U/L Alanine Aminotransferase (ALT/SGPT) 13 0-55 U/L Alkaline Phosphatase 156 H 40-136 U/L Total Protein 7.0 6.4-8.2 GM/DL Albumin 3.2 3.2-4.5 GM/DL My Orders Orders - ISSA MORALES Knee, Right, 3 Views (05/14/21 12:42) Cbc With Automated Diff (05/14/21 12:46) Comprehensive Metabolic Panel (05/14/21 12:46) Cefazolin Injection (Ancef Injection) (05/14/21 12:46) Fentanyl Inj (Sublimaze Injection) (05/14/21 13:36) Vital Signs/I&O 05/14/21 05/14/21 12:36 12:36 Temp 36.1 36.1 Pulse 76 76 Resp 20 B/P (MAP) 120/90 (100) 120/90 Pulse Ox 97 97 O2 Delivery Room Air Room Air Departure Communication (Admissions) Patient was discussed with Dr. Nithya Lugo orthopedic who is on-call for Dr. Rodriguez who performed the knee surgery 3 weeks ago. Recommends irrigation and closure. He recommended contacting our orthopedic as their facility is at max capacity and closed for transfers. Patient was discussed with Dr. Erazo who will take patient to the OR for closure and irrigation. Patient was given 1 dose of Ancef. X-ray was negative for fracture. Patient does have a vascular access currently on IV antibiotics for history of knee infections with multiple surgeries of this right knee in the past. Patient was given dose of pain medication. Patient will be transferred to the OR at this time and discharged home. Impression Primary Impression: Wound dehiscence Disposition: 01 HOME, SELF-CARE Condition: Stable Departure-Patient Inst. Decision time for Depature: 13:44 Referrals: TARUN ERAZO MD, LISA A MD (PCP/Family) Primary Care Physician ISSA MORALES May 14, 2021 12:45
[2021-05-14] MEDS ORDERED: ceFAZolin INJECTION 1,000 MG in NS (IVPB) 50 ML IV STA (12:46)
[2021-05-14 13:18] LABS: BASOPHILS # (AUTO) 0.1 10^3/uL (0.0-0.1); BASOPHILS % (AUTO) 1 % (0-10); EOSINOPHILS # (AUTO) 0.1 10^3/uL (0.0-0.3); EOSINOPHILS % (AUTO) 2 % (0-10); HEMATOCRIT 32 % (35-52); HEMOGLOBIN 9.8 g/dL (11.5-16.0); LYMPHOCYTES # (AUTO) 1.8 10^3/uL (1.0-4.0); LYMPHOCYTES % (AUTO) 23 % (12-44); MEAN CORPUSCULAR HEMOGLOBIN 25 pg (25-34); MEAN CORPUSCULAR HGB CONC 31 g/dL (32-36); MEAN CORPUSCULAR VOLUME 80 fL (80-99); MEAN PLATELET VOLUME 8.6 fL (9.0-12.2); MONOCYTES # (AUTO) 0.6 10^3/uL (0.0-1.0); MONOCYTES % (AUTO) 8 % (0-12); NEUTROPHILS # (AUTO) 5.4 10^3/uL (1.8-7.8); NEUTROPHILS % (AUTO) 66 % (42-75); PLATELET COUNT 596 10^3/uL (130-400); WHITE BLOOD COUNT 8.1 10^3/uL (4.3-11.0)
--- NOTE | 2021-05-14 13:20 | Diagnostic Imaging Report ---
Indication: Pain after fall. Surgery 3 weeks ago. EXAMINATION: Right knee 11 05/14/2021 COMPARISON: No recent FINDINGS: 3 views of the knee demonstrate a total knee arthroplasty which appears intact and well aligned with no evidence for fracture or dislocation. There is no evidence for loosening. There is diffuse soft tissue prominence about the anterior knee with a large suprapatellar joint effusion. IMPRESSION: 1. Diffuse soft tissue findings with no acute fractures appreciated. Dictated by: Dictated on workstation # [id number]
[2021-05-14 13:26] LABS: ALBUMIN 3.2 GM/DL (3.2-4.5)
[2021-05-14 13:28] LABS: CALCIUM 9.1 MG/DL (8.5-10.1)
[2021-05-14 13:31] LABS: BILIRUBIN,TOTAL 0.2 MG/DL (0.1-1.0)
[2021-05-14 13:33] LABS: CREATININE SERUM 1.41 MG/DL (0.60-1.30)
[2021-05-14] MEDS ORDERED: fentaNYL INJ 100 MCG/2 ML AMP IVP STA (13:36)
[2021-05-14] MEDS ORDERED: fentaNYL INJ 100 MCG/2 ML AMP ONE ×2 (14:53→15:15)
[2021-05-14] MEDS ORDERED: MIDAZOLAM 2 MG/2 ML (VERSED) VIAL ONE (14:54)
[2021-05-14] MEDS ORDERED: LACTATED RINGERS 1,000 ML IV PRN (15:00)
--- NOTE | 2021-05-14 15:05 | History & Physical Orthopedic ---
History and Physical Subjective Date of Exam 05/14/21 Chief Complaint Right Knee Wound HPI/Events since last exam Had revision R TKA with Dr. Rodriguez at [facility] 3 weeks ago. Fell today and had dehiscence of wound. I was contacted to care for her as she could not be transferred to [facility]. Medical, Surgical History Surgeries: Yes (GASTRIC BYPASS, BLADDER TIE UP, internal groshong insertion) Orthopedic--multiple knee surgeries with recent revision Respiratory: No Cardiac: Yes Hypertension Neurological: Yes (LAST SEIZURE 15 YEARS AGO) Reproductive Disorders: No Genitourinary: No Gastrointestinal: No Musculoskeletal: Yes Arthritis, Back Injury Endocrine: No HEENT: No Cancer: No Psychosocial: No Integumentary: No Blood Disorders: No Social History see ER note Family History see ER note Review of Systems not obtained Allergies: Coded Allergies: No Known Drug Allergies (Unverified , 02/20/18) Home Meds Reported Medications Tizanidine HCl (Tizanidine HCl) 4 Mg Capsule, 4 MG PO DAILY, CAP 12/08/19 Doxycycline Hyclate (Doxycycline Hyclate) 100 Mg Capsule, 100 MG PO DAILY, CAP 12/08/19 Furosemide (Furosemide) 40 Mg Tablet, 40 MG PO DAILY, TAB 12/08/19 Fluoxetine HCl (Prozac) 40 Mg Capsule, 40 MG PO DAILY, CAP 12/08/19 Propranolol HCl (Propranolol HCl ER) 120 Mg Cap.sa.24h, 120 MG PO DAILY, CAP 12/08/19 Multivitamin (MULTI VITAMIN DAILY) 1 Each Tablet, 1 TAB PO DAILY 08/25/13 Alprazolam (Xanax) 0.25 Mg Tablet, 0.25 MG PO BID PRN for ANXIETY NEEDED FOR ANXIETY 08/25/13 Potassium Gluconate (Potassium) 99 Mg Tablet, 99 MG PO DAILY 08/07/13 Ferrous Sulfate (Iron) 325 ( Tablet, 325 MG PO DAILY 08/07/13 Amlodipine Besylate (Amlodipine Besylate) 5 Mg Tablet, 5 MG PO DAILY 08/07/13 Lamotrigine (Lamotrigine) 200 Mg Tablet, 200 MG PO TID 08/07/13 Objective Exam Constitutional: No acute distress Cardiovascular: S1 and S2 present, peripheral pulses palpable Respiratory: Symmetric chest expansion, no labored breathing Gastrointestinal: Soft, NT Extremities: Right knee with complete dehiscence of surgical site, no visible fascial defect Vital Signs Vital Signs Date Time Temp Pulse Resp B/P (MAP) Pulse Ox O2 Delivery O2 Flow Rate FiO2 05/14/21 12:36 36.1 76 120/90 97 Room Air 05/14/21 12:36 36.1 76 20 120/90 (100) 97 Room Air Lab Results Laboratory Tests 05/14/21 13:05: White Blood Count 8.1, Red Blood Count 3.96, Hemoglobin 9.8L, Hematocrit 32L, Mean Corpuscular Volume 80, Mean Corpuscular Hemoglobin 25, Mean Corpuscular Hemoglobin Concent 31L, Red Cell Distribution Width 18.2H, Platelet Count 596H, Mean Platelet Volume 8.6L, Immature Granulocyte % (Auto) 1, Neutrophils (%) (Auto) 66, Lymphocytes (%) (Auto) 23, Monocytes (%) (Auto) 8, Eosinophils (%) (Auto) 2, Basophils (%) (Auto) 1, Neutrophils # (Auto) 5.4, Lymphocytes # (Auto) 1.8, Monocytes # (Auto) 0.6, Eosinophils # (Auto) 0.1, Basophils # (Auto) 0.1, Immature Granulocyte # (Auto) 0.1, Sodium Level 135, Potassium Level 4.0, Chloride Level 99, Carbon Dioxide Level 25, Anion Gap 11, Blood Urea Nitrogen 22H, Creatinine 1.41H, Estimat Glomerular Filtration Rate 37, BUN/Creatinine Ratio 16, Glucose Level 103, Calcium Level 9.1, Corrected Calcium 9.7, Total Bilirubin 0.2, Aspartate Amino Transf (AST/SGOT) 29, Alanine Aminotransferase (A LT/SGPT) 13, Alkaline Phosphatase 156H, Total Protein 7.0, Albumin 3.2 Imaging Right knee x-rays were reviewed and demonstrated intact total knee prosthesis without fracture Assessment and Plan Assessment Right Knee Wound Dehiscence Problem List Right Knee Wound Dehiscence Plan Will proceed with debridement and closure. Plan to allow discharge after procedure. Patient will follow up with Dr. Rodriguez at [facility]. Final Diagonsis Right Knee Wound Dehiscence Level of the visit: Level 3 (preop) TARUN ERAZO MD May 14, 2021 15:05
[2021-05-14] MEDS ORDERED: morphine INJ 10 MG/ML 1ML (SYR OR VIAL) ONE (15:15)
[2021-05-14] MEDS ORDERED: ONDANSETRON 4 MG/2 ML (SDV) Z0FRAN ONE ×2 (15:16→15:22)
[2021-05-14] MEDS ORDERED: LIDOCAINE PF 2% 5 ML (XYLOCAINE) VIAL ONE (15:22)
[2021-05-14] MEDS ORDERED: proPOfol 200 MG/20 ML (DIPRIVAN) VIAL IV ONE (15:22)
[2021-05-14] MEDS ORDERED: ceFAZolin INJECTION 1,000 MG ONE (15:28)
[2021-05-14] MEDS ORDERED: SEVOFLURANE (ULTANE) 15 ML INHAL SOLN ONE (16:11)
[2021-05-14] MEDS ORDERED: TRM50T PO (16:12)
[2021-05-14] MEDS ORDERED: CEPH500C PO (16:13)
--- NOTE | 2021-05-14 16:18 | Operative Report - Ortho ---
Operative Report Surgeon (s)/Charging Plug Placer (s) Surgeon TARUN ERAZO MD Charging Plug Placer n/a Pre-Operative Diagnosis Right Knee Wound Dehiscence Post-Operative Diagnosis same Operative Report Date of Procedure: May 14, 2021 Name of Procedure Performed: 1) Debridement of Right Knee Surgical Wound Dehiscence 2) Closure of 15 cm Wound, Skin and Subcutaneous Tissue, Right Knee Description & Findings After obtaining informed consent and marking the patient in the preoperative holding area, the patient did receive additional IV antibiotics and was taken to the operating room. General anesthesia was induced. The right lower extremity was prepped and draped in the usual sterile fashion. Surgical timeout was ak. Initially, exposed prior vicryl sutures were removed. Curette was then used to debride and remove whitish slough tissue from the wound edges and over the fasical layer. Some of this tissue was sent for specimen. The fascial layer was intact without interruption. 3 liters of pulsatile normal saline was used to irrigate the knee. A 5 minute dilute betadine soak was then performed. Additional 3 liters of pulsatile normal saline irrigation was used. The subcutaneous layer was closed with 2-0 vicryl plus. The skin was closed with astrid. Total closure was ~15 cm in length. Wound was dressed with xeroform, 4x4s, ABD, webril, and COLBY wrap. Patient tolerated the procedure well and was stable to the recovery room. Anesthesia Type General Estimated Blood Loss minimal Specimen(s) collected/removed Tissue sent for Gram stain, aerobic, and anaerobic culture TARUN ERAZO MD May 14, 2021 16:18
--- NOTE | 2021-05-14 16:28 | Anesthesia-General Post-Op ---
General Patient Condition Mental Status/LOC: Same as Preop Cardiovascular: Satisfactory Nausea/Vomiting: Absent Respiratory: Satisfactory Pain: Controlled Complications: Absent Post Op Complications Complications None Follow Up Care/Instructions Patient Instructions None needed. Anesthesia/Patient Condition Patient Condition Patient is doing well, no complaints, stable vital signs, no apparent adverse anesthesia problems. No complications reported per nursing. MASSIMO ROSE CRNA May 14, 2021 16:28
[2021-05-14] MEDS ORDERED: ONDANSETRON 4 MG/2 ML (SDV) Z0FRAN IVP PRN (16:30)
[2021-05-14] MEDS ORDERED: fentaNYL INJ 100 MCG/2 ML AMP IVP ONE (16:30)
[2021-05-14] MEDS ORDERED: morphine INJ 10 MG/ML 1ML (SYR OR VIAL) IVP ONE (16:30)
== END 2021-05-14 18:42 | disposition home or self-care (01) ==
LOC: EDUNIT# 12:33 → ER 12:35 → SDC 14:13
PROVIDERS: ATTEND Orthopaedic Surgery
DX: T81.31XA Disruption of external operation (surgical) wound, not elsewhere classified, initial encounter (principal); I10 Essential (primary) hypertension; M19.90 Unspecified osteoarthritis, unspecified site; E66.9 Obesity, unspecified; Z68.34 Body mass index [BMI] 34.0-34.9, adult; W19.XXXA Unspecified fall, initial encounter; Z96.653 Presence of artificial knee joint, bilateral; Z79.899 Other long term (current) drug therapy
CPT/HCPCS: 36415; 73562; 80053; 85025; 87070; 87075; 87205

== ENCOUNTER 2021-07-05 18:12 | Emergency (ER) | payer MEDICARE, MEDICAID ==
[~2021-07-05] VITALS: Ht 160 cm; Wt 88.0 kg
[~2021-07-05 18:12] MED LIST changes: +CEPH500C PO; +TRM50T PO
[2021-07-05] MEDS ORDERED: CEPHALEXIN 250 MG (KEFLEX) CAP PO SCH (18:30)
--- NOTE | 2021-07-05 18:35 | ED Lower Extremity ---
General Chief Complaint: Lower Extremity Stated Complaint: FALL - BUSTED R KNEE JJ OPEN Source: patient Exam Limitations: no limitations History of Present Illness Date Seen by Provider: Jul 05, 2021 Time Seen by Provider: 18:32 Initial Comments To ER with a laceration to the right anterior knee. She tripped and fell landing on a flexed right knee causing a laceration. She had a right knee replacement by Dr. Rodriguez at [facility] in [place] in the first week of April. She was then here on May 14 after a fall and wound dehiscence. She was taken to the operating room for washout and closure. Onset: just prior to arrival Severity: moderate Pain/Injury Location: right knee Method of Injury: direct blow Modifying Factors: Worse With Movement Allergies and Home Medications Allergies Coded Allergies: gabapentin (Verified Allergy, Unknown, 05/14/21) Patient Home Medication List Home Medication List Reviewed: Yes Alprazolam (Xanax) 0.25 Mg Tablet, 0.25 MG PO BID PRN for ANXIETY, (Reported) Entered as Reported by: MARTELL ROE on 08/25/13 1240 Amlodipine Besylate (Amlodipine Besylate) 5 Mg Tablet, 5 MG PO DAILY, (Reported) Entered as Reported by: HARRIS RAMIREZ on 08/07/13 09 Cephalexin (Cephalexin) 500 Mg Capsule, 500 MG PO Q6H Prescribed by: TARUN REAZO MD on 05/14/21 1613 Doxycycline Hyclate (Doxycycline Hyclate) 100 Mg Capsule, 100 MG PO DAILY, (Reported) Entered as Reported by: CAR CAT on 12/08/19913 Ferrous Sulfate (Iron) 325 ( Tablet, 325 MG PO DAILY, (Reported) Entered as Reported by: HARRIS RAMIREZ on 08/07/13 09 Fluoxetine HCl (Prozac) 40 Mg Capsule, 40 MG PO DAILY, (Reported) Entered as Reported by: CAR CAT on 12/08/19913 Furosemide (Furosemide) 40 Mg Tablet, 40 MG PO DAILY, (Reported) Entered as Reported by: CAR CAT on 12/08/19913 Lamotrigine (Lamotrigine) 200 Mg Tablet, 200 MG PO TID, (Reported) Entered as Reported by: HARRIS RAMIREZ on 08/07/13 09 Multivitamin (Multi Vitamin Daily) 1 Each Tablet, 1 TAB PO DAILY, (Reported) Entered as Reported by: MARTELL ROE on 08/25/13 1241 Potassium Gluconate (Potassium) 99 Mg Tablet, 99 MG PO DAILY, (Reported) Entered as Reported by: HARRIS RAMIREZ on 08/07/13 0939 Propranolol HCl (Propranolol HCl ER) 120 Mg Cap.sa.24h, 120 MG PO DAILY, (Reported) Entered as Reported by: CAR CAT on 12/08/19 0914 Tizanidine HCl (Tizanidine HCl) 4 Mg Capsule, 4 MG PO DAILY, (Reported) Entered as Reported by: CAR CAT on 12/08/19 0914 Tramadol HCl (Tramadol HCl) 50 Mg Tablet, 50 MG PO Q4H PRN for PAIN-MODERATE (5- 7), (Reported) Entered as Reported by: TARUN ERAZO MD on 05/14/21 1612 Review of Systems Constitutional: see HPI EENTM: see HPI Respiratory: no symptoms reported Cardiovascular: no symptoms reported Genitourinary: no symptoms reported Musculoskeletal: see HPI Skin: see HPI Psychiatric/Neurological: No Symptoms Reported Past Ynigizs-Hgwnqd-Mudfuu Hx Immunizations Up To Date Tetanus Booster (TDap): Unknown Past Medical History Surgery/Hospitalization HX: 04/17/2021 RIGHT KNEE SURGERY DUE TO POSSIBLE KNEE INFECTION. 2013- BACK SURGERY DUE TO ARTHRITIS. 2012- NECK SURGERY DUE TO FALL. Surgeries: Yes (GASTRIC BYPASS, BLADDER TIE UP, internal groshong insertion) Orthopedic Respiratory: No Currently Using CPAP: No Currently Using BIPAP: No Cardiac: Yes Hypertension Neurological: Yes (LAST SEIZURE 15 YEARS AGO) Reproductive Disorders: No Genitourinary: No Gastrointestinal: No Musculoskeletal: Yes Arthritis, Back Injury Endocrine: No HEENT: No Cancer: No Psychosocial: No Integumentary: No Blood Disorders: No Family Medical History Family history: Arthritis 03 MOTHER Family history: Cardiovascular disease 03 FATHER 09 BROTHER Family history: Diabetes mellitus 03 FATHER Family history: Hypertension 03 MOTHER Family history: Thyroid disorder 03 MOTHER 09 SISTER Myocardial infarction 03 FATHER Stroke 03 FATHER No Family History of: Abdominal aortic aneurysm Alcoholism Cancer Family history: Alzheimer's disease Family history: Asthma Family history: Breast disease Family history: Gastrointestinal disease Hereditary disease History of - anemia History of - respiratory disease Seizure disorder No Pertinent Family Hx Physical Exam Vital Signs Vital Signs - First Documented 07/05/21 18:25 Temp 36.0 Pulse 97 Resp 18 B/P (MAP) 139/75 (96) Pulse Ox 100 Capillary Refill : Height, Weight, BMI Height: 5'3.00" Weight: 270lbs. 0.0oz. 122.346207na; 34.00 BMI Method:Stated General Appearance: WD/WN, no apparent distress Respiratory: normal breath sounds, no respiratory distress Hips: bilateral hip non-tender, bilateral hip normal inspection, bilateral hip normal range of motion Legs: bilateral leg non-tender, bilateral leg normal inspection, bilateral leg normal range of motion Knees: right knee other (To the right anterior knee has a large incision that has healed. There is a 2 cm segment in the center that has a laceration with exposed adipose tissue. No active bleeding.) Ankles: bilateral ankle non-tender, bilateral ankle normal inspection, bilateral ankle normal range of motion Feet: bilateral foot non-tender, bilateral foot normal inspection, bilateral foot normal range of motion Neurologic/Psychiatric: alert, normal mood/affect, oriented x 3 Skin: normal color, warm/dry Procedures/Interventions Wound Location: Lower Extremities Wound Length (cm): 2.5 Wound's Depth, Shape: linear Wound Explored: clean Irrigated w/ Saline (ccs): 500 Anesthesia: 1% Lidocaine Suture: Ethlion Suture Size: 3-0 Number of Sutures: 6 Layer Closure?: 1 Number Deep Layer Sutures: 0 Progress Wound was anesthetized with 4 mL of 1% lidocaine without epinephrine then irrigated with 500 mL of chlorhexidine/saline then closed with 6 simple interrupted sutures/3-0 Monocryl. Progress/Results/Core Measures Results/Orders My Orders Orders - MARIE KAISER APRN Knee, Right, 3 Views (07/05/21 18:29) Cephalexin Capsule (Keflex Capsule) (07/05/21 18:30) Lidocaine 1% Inj 20 Ml (Xylocaine 1% Inj (07/05/21 19:00) Medications Given in ED Current Medications Medications Dose Ordered Sig/Carol Route Start Time Stop Time Status Last Admin Dose Admin Lidocaine HCl 20 ml ONCE ONCE INJ 07/05/21 19:00 07/05/21 19:01 DC 07/05/21 19:00 20 ML Vital Signs/I&O 07/05/21 18:25 Temp 36.0 Pulse 97 Resp 18 B/P (MAP) 139/75 (96) Pulse Ox 100 Departure Communication (Admissions) 192-patient is already on amoxicillin twice daily from Dr. Rodriguez from orthopedics as this wound has started to dehisce already she states. She is told to take that twice a day until otherwise directed by him and she has plenty of this at home. This will be adequate for infection prophylaxis. NAME: [facility] REC#: [id number] PT STATUS: REG ER : 1955 PHYSICIAN: MARIE KAISER APRN ADMIT DATE: 07/05/21/ER Draft Date of Exam:07/05/21 KNEE, RIGHT, 3 VIEWS CLINICAL INDICATIONS: Patient had right knee replacement two months ago. Patient fell this evening. Scar broke open. EXAM: X-ray of the right knee, 3 views. COMPARISON: X-ray of the right knee dated 05/06/2021. FINDINGS AND IMPRESSION: 1: Right total knee arthroplasty is seen in stable position without complications. 2: There is a small amount of soft tissue air in the anterior pretibial and prepatellar region with soft tissue swelling. There is no unexpected radiodense foreign object seen. 3: There is no fracture or dislocation. Dictated on workstation # [id number] Dict: 07/05/[id number] Trans: 07/05/211907 PJE [id number] Interpreted by: GILBERTO HART MD Electronically signed by: Impression Primary Impression: Knee laceration Disposition: HOME, SELF-CARE Condition: Stable Departure-Patient Inst. Decision time for Depature: 18:35 Referrals: SUSY CHAVEZ MD (PCP/Family) Primary Care Physician Patient Instructions: Laceration Repair With Stitches ED Add. Discharge Instructions: 1. Return to ER if any sign of infection such as redness or swelling. Take antibiotics as directed. You can let water run over this gently starting tomorrow. Do not soak this in water. Return to ER to have the stitches removed in 10 days. All discharge instructions reviewed with patient and/or family. Voiced understanding. Scripts Hydrocodone/Acetaminophen (Hydrocodone-Acetamin 5-325 mg) 1 Each Tablet 1 TAB PO Q4H PRN for PAIN-MODERATE (5-7), #10 TAB Prov: MARIE KAISER APRN 07/05/21 MARIE KAISER APRN Jul 05, 2021 18:35
[2021-07-05] MEDS ORDERED: LIDOCAINE 1% INJ 20 ML VIAL INJ ONE (19:00)
--- NOTE | 2021-07-05 19:09 | Diagnostic Imaging Report ---
CLINICAL INDICATIONS: Patient had right knee replacement two months ago. Patient fell this evening. Scar broke open. EXAM: X-ray of the right knee, 3 views. COMPARISON: X-ray of the right knee dated 05/06/2021. FINDINGS AND IMPRESSION: 1: Right total knee arthroplasty is seen in stable position without complications. 2: There is a small amount of soft tissue air in the anterior pretibial and prepatellar region with soft tissue swelling. There is no unexpected radiodense foreign object seen. 3: There is no fracture or dislocation. Dictated by: Dictated on workstation # [id number]
[2021-07-05] MEDS ORDERED: ACHD5005 PO ×2 (19:28→20:18)
[2021-07-05 19:44] VITALS: BP 130/76
== END 2021-07-05 19:46 | disposition home or self-care (01) ==
LOC: EDUNIT# 18:12 → ER 18:14
DX: S81.011A Laceration without foreign body, right knee, initial encounter (principal); I10 Essential (primary) hypertension; W01.0XXA Fall on same level from slipping, tripping and stumbling without subsequent striking against object, initial encounter
CPT/HCPCS: 12001; 73562

== ENCOUNTER 2022-01-27 11:27 | Emergency (ER) | payer MEDICARE, MEDICAID ==
[~2022-01-27] VITALS: Ht 160 cm; Wt 88.5 kg
[~2022-01-27 11:27] MED LIST changes: +ACHD5005 PO
[2022-01-27] MEDS ORDERED: ONDANSETRON 4 MG/2 ML (SDV) Z0FRAN ONE (11:57)
[2022-01-27] MEDS ORDERED: ONDANSETRON 4 MG/2 ML (SDV) Z0FRAN IVP ONE (12:00)
[2022-01-27] MEDS ORDERED: ONDANSETRON 4 MG (ZOFRAN) ORAL DISSOLVE TAB SL ONE (12:00)
[2022-01-27 12:45] LABS: BASOPHILS # (AUTO) 0.1 10^3/uL (0.0-0.1); BASOPHILS % (AUTO) 1 % (0-10); EOSINOPHILS # (AUTO) 0.3 10^3/uL (0.0-0.3); EOSINOPHILS % (AUTO) 3 % (0-10); HEMATOCRIT 35 % (35-52); HEMOGLOBIN 10.7 g/dL (11.5-16.0); LYMPHOCYTES # (AUTO) 1.6 10^3/uL (1.0-4.0); LYMPHOCYTES % (AUTO) 16 % (12-44); MEAN CORPUSCULAR HEMOGLOBIN 27 pg (25-34); MEAN CORPUSCULAR HGB CONC 31 g/dL (32-36); MEAN CORPUSCULAR VOLUME 86 fL (80-99); MEAN PLATELET VOLUME 8.1 fL (9.0-12.2); MONOCYTES # (AUTO) 0.7 10^3/uL (0.0-1.0); MONOCYTES % (AUTO) 7 % (0-12); NEUTROPHILS # (AUTO) 7.5 10^3/uL (1.8-7.8); NEUTROPHILS % (AUTO) 73 % (42-75); PLATELET COUNT 551 10^3/uL (130-400); WHITE BLOOD COUNT 10.2 10^3/uL (4.3-11.0)
[2022-01-27 12:56] LABS: POTASSIUM 3.3 MMOL/L (3.6-5.0)
[2022-01-27 12:57] LABS: CALCIUM 9.5 MG/DL (8.5-10.1)
[2022-01-27 13:01] LABS: CREATININE SERUM 0.88 MG/DL (0.60-1.30)
--- NOTE | 2022-01-27 13:45 | Diagnostic Imaging Report ---
CLINICAL HISTORY: Fall. Left knee pain. COMPARISON: None. TECHNIQUE: 3 views of the left knee. FINDINGS: There is no acute fracture or dislocation of the left knee. Post surgical changes of left total knee arthroplasty are visualized. No periprosthetic fracture or loosening. No joint effusion is seen in the left knee. No focal osseous lesions. IMPRESSION: 1. No acute fracture or dislocation in the left knee. 2. Unremarkable appearance of the left total knee arthroplasty. No periprosthetic fracture. Dictated by: Dictated on workstation # [id number]
--- NOTE | 2022-01-27 13:46 | Diagnostic Imaging Report ---
EXAMINATION: CT head and CT cervical spine without contrast. TECHNIQUE: Multiple contiguous axial images were obtained through the brain and cervical spine without the use of intravenous contrast. Sagittal and coronal reformations through the cervical spine were then performed. All CT scans use one or more of the following dose optimizing techniques: automated exposure control, MA and/or KvP adjustment based on patient size and exam type or iterative reconstruction. HISTORY: Head and neck injury COMPARISON: 02/20/2018 FINDINGS: The flanagan-white matter differentiation is normal. No mass effect or midline shift. The ventricles are normal in size and configuration. Basilar cisterns are patent. There are no intra- or extra-axial fluid collections. There is no intracranial hemorrhage. The orbits are normal. Paranasal sinuses are normal. Mastoid air cells are clear. No soft tissue abnormality is seen. No osseus lesions or fractures are seen. The alignment of the cervical spine is normal. No fracture is seen. Vertebral body heights are normal. The craniocervical junction is normal. There is instrumented anterior fusion of C3-C5. There is degenerative disc height loss at C3-C4, C5-C6 and C6-C7. No soft tissue abnormality is seen in the neck. Limited views of the superior thorax are normal. IMPRESSION: 1. No acute intracranial abnormality. 2. No cervical spine fracture. Dictated by: Dictated on workstation # [id number]
--- NOTE | 2022-01-27 14:49 | ED Fall/Injury ---
General Chief Complaint: Trauma-Non Activation Stated Complaint: FALL Nursing Triage Note: PT TO ROOM 03 VIA [facility] WITH C/O TRIPPING WHILE WALKING WITH WALKER. PT REPORTS SHE FELL HITTING THE POST HEAD. PT DENIES LOC. PT REPORTS NAUSEA. PT DENIES VOMITING. Source: patient, EMS Exam Limitations: no limitations History of Present Illness Date Seen by Provider: Jan 27, 2022 Time Seen by Provider: 11:47 Initial Comments This 67-year-old woman presents to the emergency room via EMS after having a fall and striking her head on the ground. She was using her walker and tripped on her dog. She describes this as a purely mechanical fall without any prodrome or systemic problem contributing to the fall. There was no loss of consciousness but she does seem a little confused and reports nausea. She has pain in the head and neck. She has some minor pain in the left knee as well. C-collar was applied by this provider on arrival. Allergies and Home Medications Allergies Coded Allergies: gabapentin (Verified Allergy, Unknown, 05/14/21) Patient Home Medication List Home Medication List Reviewed: Yes Alprazolam (Xanax) 0.25 Mg Tablet, 0.25 MG PO BID PRN for ANXIETY, (Reported) Entered as Reported by: MARTELL ROE on 08/25/13 1240 Amlodipine Besylate (Amlodipine Besylate) 5 Mg Tablet, 5 MG PO DAILY, (Reported) Entered as Reported by: HARRIS RAMIREZ on 08/07/13 09 Cephalexin (Cephalexin) 500 Mg Capsule, 500 MG PO Q6H Prescribed by: TARUN ERAZO MD on 05/14/21 1613 Doxycycline Hyclate (Doxycycline Hyclate) 100 Mg Capsule, 100 MG PO DAILY, (Reported) Entered as Reported by: CAR CAT on 12/08/19913 Ferrous Sulfate (Iron) 325 ( Tablet, 325 MG PO DAILY, (Reported) Entered as Reported by: HARRIS RAMIREZ on 08/07/13 09 Fluoxetine HCl (Prozac) 40 Mg Capsule, 40 MG PO DAILY, (Reported) Entered as Reported by: CAR CAT on 12/08/19913 Furosemide (Furosemide) 40 Mg Tablet, 40 MG PO DAILY, (Reported) Entered as Reported by: CAR CAT on 12/08/19913 Hydrocodone/Acetaminophen (Hydrocodone-Acetamin 5-325 mg) 1 Each Tablet, 1 TAB PO Q4H PRN for PAIN-MODERATE (5-7) Prescribed by: MARIE KAISER on 07/05/21 192 Hydrocodone/Acetaminophen (Hydrocodone-Acetamin 5-325 mg) 1 Each Tablet, 1 TAB PO Q4H PRN for PAIN-MODERATE (5-7) Prescribed by: MARIE KAISER on 07/05/212017 Lamotrigine (Lamotrigine) 200 Mg Tablet, 200 MG PO TID, (Reported) Entered as Reported by: HARRIS RAMIREZ on 08/07/13 0939 Multivitamin (Multi Vitamin Daily) 1 Each Tablet, 1 TAB PO DAILY, (Reported) Entered as Reported by: MARTELL ROE on 08/25/13 1241 Potassium Gluconate (Potassium) 99 Mg Tablet, 99 MG PO DAILY, (Reported) Entered as Reported by: HARRIS RAMIREZ on 08/07/13 0939 Propranolol HCl (Propranolol HCl ER) 120 Mg Cap.sa.24h, 120 MG PO DAILY, (Reported) Entered as Reported by: CAR CAT on 12/08/19 09 Tizanidine HCl (Tizanidine HCl) 4 Mg Capsule, 4 MG PO DAILY, (Reported) Entered as Reported by: CAR CAT on 12/08/19913 Tramadol HCl (Tramadol HCl) 50 Mg Tablet, 50 MG PO Q4H PRN for PAIN-MODERATE (5- 7), (Reported) Entered as Reported by: TARUN ERAZO MD on 05/14/21 1612 Review of Systems Review of Systems Constitutional: no symptoms reported Eyes: No Symptoms Reported Ears, Nose, Mouth, Throat: no symptoms reported Respiratory: no symptoms reported Cardiovascular: no symptoms reported Gastrointestinal: see HPI Genitourinary: no symptoms reported : No Musculoskeletal: see HPI Skin: no symptoms reported Psychiatric/Neurological: See HPI Past Udektjg-Otlugg-Vfbqty Hx Patient Social History Tobacco Use?: No Smoking Status: Never a Smoker Smokeless Tobacco Frequency: Never a User Use of E-Cig and/or Vaping dev: No Use of E-Cig and/or Vaping Juan David: Never a User Substance use?: No Alcohol Use?: No Pt feels they are or have been: No Immunizations Up To Date Tetanus Booster (TDap): Unknown Past Medical History Surgery/Hospitalization HX: SEVERAL KNEE SURGERIES Surgeries: Yes (GASTRIC BYPASS, BLADDER TIE UP, internal groshong insertion) Joint Replacement (Bilateral knee replacements), Orthopedic Respiratory: No Currently Using CPAP: No Currently Using BIPAP: No Cardiac: Yes Hypertension Neurological: Yes (LAST SEIZURE 15 YEARS AGO) Reproductive Disorders: No Genitourinary: No Gastrointestinal: No Musculoskeletal: Yes Arthritis, Back Injury Endocrine: No HEENT: No Cancer: No Psychosocial: No Integumentary: No Blood Disorders: No Family Medical History Reviewed Nursing Family Hx Family history: Arthritis 03 MOTHER Family history: Cardiovascular disease 03 FATHER 09 BROTHER Family history: Diabetes mellitus 03 FATHER Family history: Hypertension 03 MOTHER Family history: Thyroid disorder 03 MOTHER 09 SISTER Myocardial infarction 03 FATHER Stroke 03 FATHER No Family History of: Abdominal aortic aneurysm Alcoholism Cancer Family history: Alzheimer's disease Family history: Asthma Family history: Breast disease Family history: Gastrointestinal disease Hereditary disease History of - anemia History of - respiratory disease Seizure disorder No Pertinent Family Hx Physical Exam Vital Signs Vital Signs - First Documented 01/27/22 11:37 Temp 36.2 Pulse 73 Resp 17 B/P (MAP) 162/89 (113) Pulse Ox 94 O2 Delivery Room Air Capillary Refill : Less Than 3 Seconds Height, Weight, BMI Height: 5'3.00" Weight: 270lbs. 0.0oz. 122.017196eo; 34.00 BMI Method:Stated General Appearance: WD/WN, mild distress HEENT: PERRL/EOMI, normal ENT inspection, pharynx normal Neck: normal inspection, tender midline (Posterior C-spine) Cardiovascular: regular rate, rhythm, no edema, no murmur Respiratory: lungs clear, normal breath sounds, no respiratory distress, no accessory muscle use Gastrointestinal: normal bowel sounds, non tender, soft Back: normal inspection, vertebral tenderness (Upper thoracic spine and upper lumbar spine) Extremities: no pedal edema, other (Incomplete healing of surgical incision over the right knee with a dressing in place that has serosanguineous drainage. 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, no motor/sensory deficits, alert, normal mood/affect, other (Cognition a bit dulled and patient is slightly confused.) Skin: normal color, warm/dry [place] Score Best Eye Response: (4) Open Spontaneously Best Verbal Response: (5) Oriented Best Motor Response: (6) Obeys Commands [place] Total: 15 Procedures/Interventions Suture Size: 3-0 Progress/Results/Core Measures Results/Orders Lab Results Laboratory Tests Test 01/27/22 12:38 Range/Units White Blood Count 10.2 4.3-11.0 10^3/uL Red Blood Count 4.02 3.80-5.11 10^6/uL Hemoglobin 10.7 L 11.5-16.0 g/dL Hematocrit 35 35-52 % Mean Corpuscular Volume 86 80-99 fL Mean Corpuscular Hemoglobin 27 25-34 pg Mean Corpuscular Hemoglobin Concent 31 L 32-36 g/dL Red Cell Distribution Width 15.9 H 10.0-14.5 % Platelet Count 551 H 130-400 10^3/uL Mean Platelet Volume 8.1 L 9.0-12.2 fL Immature Granulocyte % (Auto) 1 % Neutrophils (%) (Auto) 73 42-75 % Lymphocytes (%) (Auto) 16 12-44 % Monocytes (%) (Auto) 7 0-12 % Eosinophils (%) (Auto) 3 0-10 % Basophils (%) (Auto) 1 0-10 % Neutrophils # (Auto) 7.5 1.8-7.8 10^3/uL Lymphocytes # (Auto) 1.6 1.0-4.0 10^3/uL Monocytes # (Auto) 0.7 0.0-1.0 10^3/uL Eosinophils # (Auto) 0.3 0.0-0.3 10^3/uL Basophils # (Auto) 0.1 0.0-0.1 10^3/uL Immature Granulocyte # (Auto) 0.1 0.0-0.1 10^3/uL Sodium Level 139 135-145 MMOL/L Potassium Level 3.3 L 3.6-5.0 MMOL/L Chloride Level 107 98-107 MMOL/L Carbon Dioxide Level 22 21-32 MMOL/L Anion Gap 10 5-14 MMOL/L Blood Urea Nitrogen 17 7-18 MG/DL Creatinine 0.88 0.60-1.30 MG/DL Estimat Glomerular Filtration Rate 72 BUN/Creatinine Ratio 19 Glucose Level 103 70-105 MG/DL Calcium Level 9.5 8.5-10.1 MG/DL My Orders Orders - ANUPAMA DURÁN MD Ondansetron Injection (Zofran Injectio (01/27/22 12:00) Ct Head/Cervical Spine Wo (01/27/22 11:57) Knee, Left, 3 Views (01/27/22 11:57) Ondansetron Injection (Zofran Injectio (01/27/22 11:57) Basic Metabolic Panel (01/27/22 12:02) Cbc With Automated Diff (01/27/22 12:02) Ct Thoracic/Lumbar Spine Wo (01/27/22 14:15) Tramadol Tablet (Ultram Tablet) (01/27/22 14:30) Medications Given in ED Vital Signs/I&O 01/27/22 01/27/22 01/27/22 11:37 11:37 16:27 Temp 36.2 36.2 36.0 Pulse 73 73 68 Resp 17 17 16 B/P (MAP) 162/89 (113) 162/89 (113) 141/75 Pulse Ox 94 96 O2 Delivery Room Air Room Air Room Air Blood Pressure Mean: 113 Progress Progress Note #1: Time: 14:50 Progress Note Patient was interviewed and examined shortly after arrival. She was found to have a tender neck and complaining of neck pain. C-collar was applied. Zofran was given for nausea. That seemed to resolve. After reviewing CT results, c- collar was removed. At that point patient stated her nausea had resolved but she had developed back pain. She was found to have tenderness in the upper thoracic spine and upper lumbar spine. She requested something for pain. She normally takes hydrocodone or tramadol. A tramadol tablet was provided. CT of the thoracolumbar spine is pending. Progress Note #2: Progress Note Thoracolumbar CT showed no acute injuries. Patient was thought to likely have concussion. Cognition was dulled initially but became clear and brisker with time. Concussion precautions reviewed. Diagnostic Imaging Diagonstic Imaging: CT Plain Films/CT/US/NM/MRI: c-spine, head Comments NAME: CONG NEAL Luis MED REC#: [id number] PT STATUS: REG ER : 1955 PHYSICIAN: ANUPAMA DURÁN MD ADMIT DATE: 01/27/22/ER Signed Date of Exam:01/27/22 CT HEAD/CERVICAL SPINE WO EXAMINATION: CT head and CT cervical spine without contrast. TECHNIQUE: Multiple contiguous axial images were obtained through the brain and cervical spine without the use of intravenous contrast. Sagittal and coronal reformations through the cervical spine were then performed. All CT scans use one or more of the following dose optimizing techniques: automated exposure control, MA and/or KvP adjustment based on patient size and exam type or iterative reconstruction. HISTORY: Head and neck injury COMPARISON: 02/20/2018 FINDINGS: The flanagan-white matter differentiation is normal. No mass effect or midline shift. The ventricles are normal in size and configuration. Basilar cisterns are patent. There are no intra- or extra-axial fluid collections. There is no intracranial hemorrhage. The orbits are normal. Paranasal sinuses are normal. Mastoid air cells are clear. No soft tissue abnormality is seen. No osseus lesions or fractures are seen. The alignment of the cervical spine is normal. No fracture is seen. Vertebral body heights are normal. The craniocervical junction is normal. There is instrumented anterior fusion of C3-C5. There is degenerative disc height loss at C3-C4, C5-C6 and C6-C7. No soft tissue abnormality is seen in the neck. Limited views of the superior thorax are normal. IMPRESSION: 1. No acute intracranial abnormality. 2. No cervical spine fracture. Dictated by: Dictated on workstation # [id number] Dict: 01/27/22 1305 Trans: 01/27/22 1401 [facility] [phone] Interpreted by: MURTAZA CRAVEN MD Electronically signed by: MURTAZA CRAVEN MD 01/27/22 1401 Reviewed: Reviewed by Fl Diagonstic Imaging: Xray Plain Films/CT/US/NM/MRI: knee Comments NAME: CONG NEAL J MED REC#: [id number] PT STATUS: REG ER : 1955 PHYSICIAN: ANUPAMA DURÁN MD ADMIT DATE: 01/27/22/ER Signed Date of Exam:01/27/22 KNEE, LEFT, 3 VIEWS CLINICAL HISTORY: Fall. Left knee pain. COMPARISON: None. TECHNIQUE: 3 views of the left knee. FINDINGS: There is no acute fracture or dislocation of the left knee. Post surgical changes of left total knee arthroplasty are visualized. No periprosthetic fracture or loosening. No joint effusion is seen in the left knee. No focal osseous lesions. IMPRESSION: 1. No acute fracture or dislocation in the left knee. 2. Unremarkable appearance of the left total knee arthroplasty. No periprosthetic fracture. Dictated by: Dictated on workstation # [id number] Dict: 01/27/22 1314 Trans: 01/27/22 1347 [facility] [id number] Interpreted by: JOE VAUGHN DO Electronically signed by: JOE VAUGHN DO 01/27/22 1347 Reviewed: Reviewed by Me Diagonstic Imaging: CT Plain Films/CT/US/NM/MRI: other (Thoracolumbar spine) Comments NAME: CONG NEAL GenJuice REC#: [id number] PT STATUS: REG ER : 1955 PHYSICIAN: ANUPAMA DURÁN MD ADMIT DATE: 01/27/22/ER Signed Date of Exam:01/27/22 CT THORACIC/LUMBAR SPINE WO PROCEDURE: CT thoracic and lumbar spine without contrast. TECHNIQUE: Multiple contiguous axial images were obtained through the thoracic and lumbar spine without the use of intravenous contrast. Sagittal and coronal reformations were then performed. All CT scans use one or more of the following dose optimizing techniques: automated exposure control, MA and/or KvP adjustment based on patient size and exam type or iterative reconstruction. INDICATION: Mid and lower back pain. Fall. COMPARISON: 04/19/2014. FINDINGS: No acute fracture or dislocation is seen in the thoracic and lumbar spine. Posterior fusion changes are visualized from L3 to L5 with bipedicle screws and fusion rods. No hardware fracture. Endplate sclerotic changes are seen at the L2-L3 level. No suspicious focal osseous lesion. No evidence of acute spinal canal stenosis. The included lungs are clear. The paraspinal soft tissues are unremarkable. IMPRESSION: 1. No acute fracture or dislocation in the thoracic and lumbar spine. 2. Posterior fusion changes from L3 to L5. No evidence of hardware fracture or loosening. 3. Endplate sclerotic changes at the L2-L3 level. Dictated by: Dictated on workstation # [id number] Dict: 01/27/22 1503 Trans: 01/27/22 1518 [facility] [phone] Interpreted by: JOE VAUGHN DO Electronically signed by: JOE VAUGHN DO 01/27/22 1518 Departure Impression Primary Impression: Fall on same level Qualified Codes: W18.30XA - Fall on same level, unspecified, initial encounter Additional Impressions: Concussion Qualified Codes: S06.0X0A - Concussion without loss of consciousness, initial encounter Back pain Qualified Codes: M54.9 - Dorsalgia, unspecified Disposition: 01 HOME, SELF-CARE Condition: Stable Departure-Patient Inst. Referrals: SUSY CHAVEZ MD (PCP/Family) Primary Care Physician Patient Instructions: Concussion in Adults, Preventing Falls in Older Adults Add. Discharge Instructions: You likely experienced a concussion related to your head injury today. For this reason keep physical and cognitive activities calm for the next couple of days. If any activity increases symptoms of concussion such as nausea, confusion, h eadache, vision changes, etc. stop that activity and rest. You may take Tylenol (acetaminophen) up to 1000 mg every 6 hours as needed for pain. You may also ice affected areas in 20-minute intervals to help with soreness. Take Zofran (ondansetron) as prescribed for nausea or vomiting. Be extra cautious over the next week to avoid any activities that could predispose you to head injury. Repeat head injury while recovering from a concussion can cause serious brain injury. Drink plenty of clear liquids to stay well-hydrated. Follow-up with your primary care provider next week for repeat examination. All discharge instructions reviewed with patient and/or family. Voiced understanding. Copy Copies To 1: SUSY CHAVEZ MD, JOSHUA T MD Jan 27, 2022 14:49
--- NOTE | 2022-01-27 15:07 | Diagnostic Imaging Report ---
PROCEDURE: CT thoracic and lumbar spine without contrast. TECHNIQUE: Multiple contiguous axial images were obtained through the thoracic and lumbar spine without the use of intravenous contrast. Sagittal and coronal reformations were then performed. All CT scans use one or more of the following dose optimizing techniques: automated exposure control, MA and/or KvP adjustment based on patient size and exam type or iterative reconstruction. INDICATION: Mid and lower back pain. Fall. COMPARISON: 04/19/2014. FINDINGS: No acute fracture or dislocation is seen in the thoracic and lumbar spine. Posterior fusion changes are visualized from L3 to L5 with bipedicle screws and fusion rods. No hardware fracture. Endplate sclerotic changes are seen at the L2-L3 level. No suspicious focal osseous lesion. No evidence of acute spinal canal stenosis. The included lungs are clear. The paraspinal soft tissues are unremarkable. IMPRESSION: 1. No acute fracture or dislocation in the thoracic and lumbar spine. 2. Posterior fusion changes from L3 to L5. No evidence of hardware fracture or loosening. 3. Endplate sclerotic changes at the L2-L3 level. Dictated by: Dictated on workstation # [id number]
[2022-01-27 16:27] VITALS: BP 141/75
== END 2022-01-27 17:00 | disposition home or self-care (01) ==
LOC: EDUNIT# 11:27 → ER 11:28
DX: S06.0X0A Concussion without loss of consciousness, initial encounter (principal); M54.6 Pain in thoracic spine; M54.50 Low back pain, unspecified; M54.2 Cervicalgia; M25.562 Pain in left knee; Z98.890 Other specified postprocedural states; Z96.652 Presence of left artificial knee joint; Z28.310 Unvaccinated for COVID-19; W01.198A Fall on same level from slipping, tripping and stumbling with subsequent striking against other object, initial encounter
CPT/HCPCS: 36415; 70450; 72125; 72128; 72131; 73562; 80048; 85025

== ENCOUNTER → 2022-07-30 | Outpatient (CLI) | payer MEDICARE, MEDICAID | LOC: CARD 13:31 | PROVIDERS: ATTEND Internal Medicine Cardiovascular Disease | DX: R06.09 Other forms of dyspnea (principal) | CPT/HCPCS: 93306 ==

== ENCOUNTER → 2022-08-21 | Outpatient (CLI) | payer MEDICARE, MEDICAID ==
[~2022-08-21] VITALS: Ht 160 cm; Wt 85.0 kg
[~2022-08-21] MED LIST changes: +REGADENOSON 0.4 MG/5 ML SYR (LEXISCAN) IV ONE
[2022-08-21] MEDS: CATHETER FLUSH 10 ML SYR IVP PRN ×2 (08:26→09:30)
[2022-08-21 09:27] VITALS: BP 127/68
--- NOTE | 2022-08-22 16:22 | STRESS TEST ---
DATE OF SERVICE: 08/21/2022 RESTING AND POST REGADENOSON TECHNETIUM-99M TETROFOSMIN SPECT CT IMAGING ORDERING PHYSICIAN: Brissa Monroe M.D.; KHAI; JACQUIE; [place]. PRIMARY PHYSICIAN: Dr. Khan. CLINICAL DIAGNOSIS: Chest discomfort. Baseline images were carried out after injection of 10.36 mCi technetium-99m tetrofosmin. This was followed by 0.4 mg regadenoson and 29.7 mCi of, tetrofosmin for stress imaging. The electrocardiogram showed sinus rhythm at baseline. The electrocardiogram did not change significantly with regadenoson infusion. She noted some nausea following regadenoson infusion, which resolved in a few minutes. Review of images at rest and following stress does not indicate any significant perfusion defects consistent with myocardial ischemia and infarction. Gated images show normal global left ventricular systolic function with normal regional wall motion. Left ventricular ejection fraction is calculated to be 73%. CONCLUSIONS: 1. No evidence of any significant myocardial ischemia or infarction on this study. 2. Normal regional wall motions. 3. Normal global left ventricular systolic function with a calculated ejection fraction of 73%. Job ID: [id number] DocumentID: [id number] Dictated Date: 08/22/2022 12:59:25 [employer] Tester Date: 08/22/2022 16:21:00 Dictated By: BRISSA MONROE MD; KHAI; JACQUIE; [place];
== END ==
LOC: CARD 08:06
PROVIDERS: ATTEND Internal Medicine Cardiovascular Disease
DX: R07.89 Other chest pain (principal)
CPT/HCPCS: 78452; 93017; A9502